=== PATIENT | female | born 1980 | race Caucasian/White ===

== ENCOUNTER 2021-04-22 10:22 | Outpatient (REF) | payer BC, SELFPAY ==
[2021-04-22 10:27] LABS: MANUAL DIFF FLAG NO
[2021-04-22 10:39] LABS: Basophils Absolute Auto 0.1 X10*3/uL (0.0-0.2); Basophils Percent Auto 0.6 % (0-2); Eosinophils Absolute Auto 0.3 X10*3/uL (0.0-0.4); Eosinophils Percent Auto 3.3 % (0-4); Hematocrit 39.2 % (37-47); Hemoglobin 13.5 g/dl (12.0-16.0); Imm Gran Abs Auto 0.02 X10*3/uL (0.00-0.03); Imm Gran Pct Auto 0.3 % (0.0-0.4); Lymphocytes Absolute Auto 2.8 X10*3/uL (1.2-4.9); Lymphocytes Percent Auto 35.8 % (20-40); Mean Corpuscular HGB Conc 34.4 g/dl (31.0-35.0); Mean Corpuscular Hemoglobin 31.8 pg (27.0-33.0); Mean Corpuscular Volume 92.2 fL (80-98); Mean Platelet Volume 10.7 fL (9.4-12.3); Monocytes Absolute Auto 0.6 X10*3/uL (0.1-1.2); Monocytes Percent Auto 7.6 % (2-11); Neutrophils Absolute Auto 4.2 X10*3/uL (2.0-8.3); Neutrophils Percent Auto 52.4 % (45-73); Platelet Count 232 X10*3/uL (160-400); Red Blood Count 4.25 X10*6/uL (4.20-5.50); White Blood Count 7.9 X10*3/uL (4.8-10.8)
[2021-04-22 10:54] LABS: Appearance Urine CLEAR; Color Urine YELLOW; Glucose Urine UA NEG (NEG); Leukocyte Esterase Urine NEG (NEG); Nitrite Urine NEG (NEG); PH 5.5 (5.0-8.0); Specific Gravity - Urine >= 1.030 (1.005-1.025); Urine Blood NEG (NEG); Urine Ketones NEG (NEG); Urine Protein NEG (NEG-TRACE)
[2021-04-22 11:01] LABS: Alanine Aminotransferase 9 U/L (0-31); Albumin Level 4.5 g/dL (3.5-5.0); Alkaline Phosphatase 46 U/L (39-117); Anion Gap 14 (12-20); Aspartate Amino Transferase 18 U/L (5-31); Bilirubin Total 0.7 mg/dL (0.0-1.0); Blood Urea Nitrogen 16 mg/dL (9-16); Calcium 9.4 mg/dL (8.4-10.2); Carbon Dioxide 23 mmol/L (22-29); Chloride 107 mmol/L (96-108); Cholesterol 214 mg/dL; Estimated Glomerular Filt Rate > 60; Glucose Fasting 90 mg/dL (60-99); HDL Cholesterol 78 mg/dL; LDL Cholesterol Calculated 120 mg/dl; Potassium 4.1 mmol/L (3.3-5.1); Sodium 140 mmol/L (135-145); Total Protein 7.2 g/dL (6.5-8.0); Triglycerides 84 mg/dL
== END 2021-04-22 10:23 | disposition home or self-care (01) ==
LOC: HO.LNP 10:22
PROVIDERS: Visit Provider Internal Medicine
DX: Z00.00 Encounter for general adult medical examination without abnormal findings (principal)
CPT/HCPCS: 80053; 80061; 81003; 85025

== ENCOUNTER 2021-08-13 10:20 | Outpatient (REF) | payer BC, SELFPAY ==
--- NOTE | ~2021-08-13 | MM_ITS ---
EXAMINATION: MM SCREENING DIGITAL BREAST TOMOSYNTHESIS, BILATERAL CLINICAL INFORMATION: Screening. Asymptomatic. Age 40. No prior breast imaging. Family history breast cancer, paternal aunt. The lifetime risk of breast cancer based on the Tyrer-Cuzick Model is 11%. COMPARISON: None (current study represents initial baseline exam). TECHNIQUE: Digital breast tomosynthesis is performed in both the craniocaudal and mediolateral oblique views along with computer-aided detection (CAD). Synthesized 2D images are generated from the tomosynthesis. FINDINGS: There are scattered areas of fibroglandular density (ACR BI-RADS breast composition Category b). Breast tissue composition borders on heterogeneously dense. There are scattered benign parenchymal asymmetries. No significant mass or architectural abnormality. No abnormal calcifications. The axilla and skin contours are unremarkable. MM/MM tomosynthesis screening BI IMPRESSION: No mammographic evidence of malignancy. ASSESSMENT: BI-RADS 2: Benign RECOMMENDATION: Routine annual mammography screening. This patient's information was entered into a reminder system with a target due date for their next mammogram.
== END 2021-08-13 10:21 | disposition home or self-care (01) ==
LOC: HO.MAMMO 10:20
PROVIDERS: Visit Provider Internal Medicine
DX: Z12.31 Encounter for screening mammogram for malignant neoplasm of breast (principal)
CPT/HCPCS: 77063; 77067

== ENCOUNTER 2022-03-15 09:42 | Outpatient (REF) | payer BC, SELFPAY ==
--- NOTE | ~2022-03-15 | US_ITS ---
EXAMINATION: US SOFT TISSUE NECK CLINICAL INFORMATION: Enlarged lymph nodes. COMPARISON: None TECHNIQUE: Ultrasound of the neck soft tissues is performed with high-frequency murillo-scale imaging and color Doppler. FINDINGS: THYROID BED: Prior thyroidectomy. No residual thyroid tissue demonstrated in the thyroid bed. No cystic or solid nodules demonstrated in the thyroid bed. RIGHT NECK SOFT TISSUES: Scattered architecturally normal nodes are present. The nodes show normal fatty hilus, normal cortical thickness, and no cystic change or calcification. No abnormal color flow. The largest nodes are as follows: Level 2: 0.90 x 0.35 x 0.74 cm. Normal aries architecture. Level 2: 1.7 x 0.49 x 0.94 cm. Normal aries architecture. LEFT NECK SOFT TISSUES: Scattered architecturally normal nodes are present. The nodes show normal fatty hilus, normal cortical thickness, and no cystic change or calcification. No abnormal color flow. The largest nodes are as follows: Level 5B: 1.3 x 0.28 x 0.54 cm. Normal aries architecture. Level 2: 0.84 x 0.48 x 0.69 cm. Normal aries architecture. Level 2: 1.1 x 1.5 x 0.61 cm. Normal aries architecture. Level 2: 1.0 x 0.48 x 0.96 cm. Normal aries architecture. US/US soft tiss head and/or neck IMPRESSION: 1. Bilateral neck small lymph nodes having normal architecture. The largest nodule measuring 1.3 cm in the left neck and has normal architecture. 2. If clinically indicated further evaluation of the neck soft tissues and nodes may be performed with CT soft tissue neck with intravenous contrast.
== END 2022-03-15 09:43 | disposition home or self-care (01) ==
LOC: HO.HMGCX 09:42
PROVIDERS: Visit Provider Internal Medicine
DX: R59.0 Localized enlarged lymph nodes (principal)
CPT/HCPCS: 76536

== ENCOUNTER 2022-04-28 12:06 | Outpatient (REF) | payer BC, SELFPAY ==
[2022-04-28 12:08] LABS: MANUAL DIFF FLAG NO
[2022-04-28 12:24] LABS: Basophils Percent Auto 0.5 % (0-2); Eosinophils Absolute Auto 0.3 X10*3/uL (0.0-0.4); Eosinophils Percent Auto 3.3 % (0-4); Hematocrit 38.1 % (37.0-47.0); Hemoglobin 12.8 g/dl (12.0-16.0); Imm Gran Abs Auto 0.01 X10*3/uL (0.00-0.03); Imm Gran Pct Auto 0.1 % (0.0-0.4); Lymphocytes Absolute Auto 2.6 X10*3/uL (1.2-4.9); Lymphocytes Percent Auto 31.2 % (20-40); Mean Corpuscular HGB Conc 33.6 g/dl (31.0-35.0); Mean Corpuscular Volume 92.3 fL (80.0-98.0); Mean Platelet Volume 10.4 fL (9.4-12.3); Monocytes Absolute Auto 0.6 X10*3/uL (0.1-1.2); Monocytes Percent Auto 7.1 % (2-11); Neutrophils Absolute Auto 4.9 x10*3/uL (2.0-8.3); Neutrophils Percent Auto 57.8 % (45-73); Platelet Count 231 X10*3/uL (160-400); Red Blood Count 4.13 X10*6/uL (4.20-5.50); Red Cell Distribution Width 12.6 % (11.0-16.0); White Blood Count 8.4 X10*3/uL (4.8-10.8)
[2022-04-28 12:37] LABS: Appearance Urine Clear; Color Urine Dark Yellow; Glucose Urine UA Negative (Negative); Leukocyte Esterase Urine Small (1+) (Negative); Nitrite Urine Negative (Negative); Specific Gravity - Urine 1.025 (1.005-1.025); UMIC TRIGGER UA YES; Urine Blood Negative (Negative); Urine Ketones Trace mg/dL (Negative); Urine Protein Negative (Neg-Trace)
[2022-04-28 12:39] LABS: Bacteria Urine 1+ (None Seen); Hyaline Casts Urine 0-2 /LPF (0-2); RBC Urine 0-2 /HPF (0-2)
[2022-04-28 12:50] LABS: Alanine Aminotransferase 12 U/L (0-31); Albumin Level 4.2 g/dL (3.5-5.0); Alkaline Phosphatase 42 U/L (39-117); Anion Gap 13 (12-20); Aspartate Amino Transferase 18 U/L (5-31); Bilirubin Total 0.3 mg/dL (0.0-1.0); Blood Urea Nitrogen 13 mg/dL (9-16); Calcium 9.2 mg/dL (8.4-10.2); Carbon Dioxide 25 mmol/L (22-29); Chloride 104 mmol/L (96-108); Cholesterol 202 mg/dL; Estimated Glomerular Filt Rate > 60; Glucose Fasting 89 mg/dL (60-99); HDL Cholesterol 69 mg/dL; LDL Cholesterol Calculated 108 mg/dl; Potassium 4.3 mmol/L (3.3-5.1); Sodium 138 mmol/L (135-145); Total Protein 6.8 g/dL (6.5-8.0); Triglycerides 126 mg/dL
== END 2022-04-28 12:07 | disposition home or self-care (01) ==
LOC: HO.LNP 12:06
PROVIDERS: Visit Provider Internal Medicine
DX: Z00.00 Encounter for general adult medical examination without abnormal findings (principal)
CPT/HCPCS: 80053; 80061; 81001; 85025

== ENCOUNTER 2022-08-15 10:13 | Outpatient (REF) | payer OTHER, SELFPAY ==
--- NOTE | ~2022-08-15 | MM_ITS ---
EXAMINATION: MM SCREENING DIGITAL BREAST TOMOSYNTHESIS, BILATERAL CLINICAL INFORMATION: Screening. Asymptomatic. The lifetime risk of breast cancer based on the Tyrer-Cuzick Model is 17%. COMPARISON: Mammography: 08/13/2021 (baseline) TECHNIQUE: Digital breast tomosynthesis is performed in both the craniocaudal and mediolateral oblique views along with computer-aided detection (CAD). Synthesized 2D images are generated from the tomosynthesis. FINDINGS: The breasts are heterogeneously dense, which may obscure small masses (ACR BI-RADS breast composition Category c). There are no significant masses, abnormal calcifications, or other abnormalities. Parenchymal pattern is similar to prior baseline exam. There is no developing density or architectural abnormality. The axilla and skin contours are unremarkable. No significant changes. MM/MM tomosynthesis screening BI IMPRESSION: No mammographic evidence of malignancy. ASSESSMENT: BI-RADS 1: Negative RECOMMENDATION: Routine annual mammography screening. This patient's information was entered into a reminder system with a target due date for their next mammogram.
== END 2022-08-15 10:14 | disposition home or self-care (01) ==
LOC: HO.MAMMO 10:13
PROVIDERS: PCP Internal Medicine; Visit Provider Internal Medicine
DX: Z12.31 Encounter for screening mammogram for malignant neoplasm of breast (principal)
CPT/HCPCS: 77063; 77067

== ENCOUNTER 2023-05-18 11:27 | Outpatient (REF) | payer OTHER, SELFPAY ==
[2023-05-18 11:29] LABS: MANUAL DIFF FLAG NO
[2023-05-18 12:10] LABS: Basophils Absolute Auto 0.1 X10*3/uL (0.0-0.2); Basophils Percent Auto 0.9 % (0-2); Eosinophils Absolute Auto 0.2 X10*3/uL (0.0-0.4); Eosinophils Percent Auto 3.3 % (0-4); Hematocrit 40.7 % (37.0-47.0); Hemoglobin 13.8 g/dl (12.0-16.0); Imm Gran Abs Auto 0.01 X10*3/uL (0.00-0.03); Imm Gran Pct Auto 0.1 % (0.0-0.4); Lymphocytes Absolute Auto 1.8 X10*3/uL (1.2-4.9); Lymphocytes Percent Auto 26.4 % (20-40); Mean Corpuscular HGB Conc 33.9 g/dl (31.0-35.0); Mean Corpuscular Hemoglobin 31.7 pg (27.0-33.0); Mean Corpuscular Volume 93.3 fL (80.0-98.0); Mean Platelet Volume 10.6 fL (9.4-12.3); Monocytes Absolute Auto 0.6 X10*3/uL (0.1-1.2); Monocytes Percent Auto 9.2 % (2-11); Neutrophils Absolute Auto 4.2 x10*3/uL (2.0-8.3); Neutrophils Percent Auto 60.1 % (45-73); Platelet Count 212 X10*3/uL (160-400); Red Blood Count 4.36 X10*6/uL (4.20-5.50); Red Cell Distribution Width 12.1 % (11.0-16.0); White Blood Count 6.9 X10*3/uL (4.8-10.8)
[2023-05-18 12:11] LABS: Appearance Urine Clear; Color Urine Yellow; Glucose Urine UA Negative (Negative); Leukocyte Esterase Urine Trace (Negative); Nitrite Urine Negative (Negative); UMIC TRIGGER UACC YES; Urine Blood Negative (Negative); Urine Ketones Negative (Negative); Urine Protein Negative (Neg-Trace)
[2023-05-18 12:19] LABS: Bacteria Urine None Seen (None Seen); Hyaline Casts Urine 0-2 /LPF (0-2); RBC Urine 0-2 /HPF (0-2); WBC Urine 0-5 /HPF (0-5)
[2023-05-18 12:35] LABS: Alanine Aminotransferase 13 U/L (0-31); Albumin Level 4.7 g/dL (3.5-5.0); Alkaline Phosphatase 47 U/L (39-117); Anion Gap 13 (12-20); Aspartate Amino Transferase 20 U/L (5-31); Bilirubin Total 0.7 mg/dL (0.0-1.0); Blood Urea Nitrogen 14 mg/dL (9-16); Calcium 9.8 mg/dL (8.4-10.2); Carbon Dioxide 23 mmol/L (22-29); Chloride 105 mmol/L (96-108); Cholesterol 195 mg/dL (<200); Estimated Glomerular Filt Rate > 60; Glucose Fasting 82 mg/dL (60-99); HDL Cholesterol 72 mg/dL (>40); LDL Cholesterol Calculated 112 mg/dL (<100); Potassium 4.4 mmol/L (3.3-5.1); Sodium 137 mmol/L (135-145); Total Protein 7.5 g/dL (6.5-8.0); Triglycerides 59 mg/dL (<150)
== END 2023-05-18 11:28 | disposition home or self-care (01) ==
LOC: HO.LNP 11:27
PROVIDERS: Visit Provider Internal Medicine
DX: Z00.00 Encounter for general adult medical examination without abnormal findings (principal)
CPT/HCPCS: 80053; 80061; 81001; 85025

== ENCOUNTER 2023-08-21 09:57 | Outpatient (REF) | payer OTHER, SELFPAY ==
--- NOTE | ~2023-08-21 | MM_ITS ---
EXAMINATION: MM SCREENING DIGITAL BREAST TOMOSYNTHESIS, BILATERAL CLINICAL INFORMATION: Screening. Asymptomatic. COMPARISON: Mammography: This study is compared with prior exams dating back to 2021. TECHNIQUE: Digital breast tomosynthesis is performed in both the craniocaudal and mediolateral oblique views along with computer-aided detection (CAD). Synthesized 2D images are generated from the tomosynthesis. FINDINGS: The breasts are heterogeneously dense, which may obscure small masses (ACR BI-RADS breast composition Category c). There are no significant masses, abnormal calcifications, or other abnormalities. MM/MM tomosynthesis screening BI IMPRESSION: No mammographic evidence of malignancy. ASSESSMENT: BI-RADS BI-RADS 1 - Negative RECOMMENDATION: Routine annual mammography screening. 1 year F/U This examination should not preclude the clinical evaluation of a suspicious palpable abnormality. This patient's information was entered into a reminder system with a target due date for their next mammogram.
== END 2023-08-21 09:58 | disposition home or self-care (01) ==
LOC: HO.MAMMO 09:57
PROVIDERS: PCP Internal Medicine; Visit Provider Internal Medicine
DX: Z12.31 Encounter for screening mammogram for malignant neoplasm of breast (principal)
CPT/HCPCS: 77063; 77067

== ENCOUNTER → 2023-08-21 10:00 | Outpatient (BNV) | payer OTHER, SELFPAY | PROVIDERS: PCP Internal Medicine; Visit Provider Radiology Diagnostic Radiology | DX: Z12.31 Encounter for screening mammogram for malignant neoplasm of breast (principal) | CPT/HCPCS: 77063; 77067 ==

== ENCOUNTER 2024-05-22 11:23 | Outpatient (REF) | payer OTHER, SELFPAY ==
[2024-05-22 11:26] LABS: MANUAL DIFF FLAG NO
[2024-05-22 11:53] LABS: Basophils Absolute Auto 0.1 X10*3/uL (0.0-0.2); Basophils Percent Auto 0.7 % (0-2); Eosinophils Absolute Auto 0.3 X10*3/uL (0.0-0.4); Eosinophils Percent Auto 3.7 % (0-4); Hematocrit 39.3 % (37.0-47.0); Hemoglobin 13.6 g/dl (12.0-16.0); Imm Gran Abs Auto 0.02 X10*3/uL (0.00-0.03); Imm Gran Pct Auto 0.3 % (0.0-0.4); Lymphocytes Absolute Auto 2.4 X10*3/uL (1.2-4.9); Mean Corpuscular HGB Conc 34.6 g/dl (31.0-35.0); Mean Corpuscular Hemoglobin 31.7 pg (27.0-33.0); Mean Corpuscular Volume 91.6 fL (80.0-98.0); Mean Platelet Volume 10.6 fL (9.4-12.3); Monocytes Absolute Auto 0.6 X10*3/uL (0.1-1.2); Monocytes Percent Auto 8.3 % (2-11); Neutrophils Absolute Auto 3.6 x10*3/uL (2.0-8.3); Platelet Count 205 X10*3/uL (160-400); Red Blood Count 4.29 X10*6/uL (4.20-5.50)
[2024-05-22 11:55] LABS: Appearance Urine Clear; Color Urine Dark Yellow; Glucose Urine UA Negative (Negative); Leukocyte Esterase Urine Negative (Negative); Nitrite Urine Negative (Negative); PH 5.5 (5.0-9.0); Specific Gravity - Urine >= 1.030 (1.005-1.025); Urine Blood Negative (Negative); Urine Ketones 15 mg/dL (Negative); Urine Protein Trace mg/dL (Neg-Trace)
[2024-05-22 12:04] LABS: Alanine Aminotransferase 13 U/L (0-31); Albumin Level 4.8 g/dL (3.5-5.0); Alkaline Phosphatase 45 U/L (39-117); Anion Gap 13 (12-20); Aspartate Amino Transferase 27 U/L (5-31); Bilirubin Total 1.4 mg/dL (0.0-1.0); Blood Urea Nitrogen 16 mg/dL (9-16); Calcium 9.8 mg/dL (8.4-10.2); Carbon Dioxide 25 mmol/L (22-29); Chloride 106 mmol/L (96-108); Cholesterol 199 mg/dL (<200); Estimated Glomerular Filt Rate > 60; Glucose Fasting 80 mg/dL (60-99); HDL Cholesterol 76 mg/dL (>40); LDL Cholesterol Calculated 112 mg/dL (<100); Potassium 3.7 mmol/L (3.3-5.1); Sodium 140 mmol/L (135-145); Total Protein 7.5 g/dL (6.5-8.0); Triglycerides 59 mg/dL (<150)
[2024-05-22 12:06] LABS: Bacteria Urine None Seen (None Seen); RBC Urine 0-2 /HPF (0-2); Squamous Epithelial Cell Urine 0-2 /HPF (0-2); WBC Urine 0-5 /HPF (0-5)
== END 2024-05-22 11:24 | disposition home or self-care (01) ==
LOC: HO.LNP 11:23
PROVIDERS: Visit Provider Internal Medicine
DX: Z00.00 Encounter for general adult medical examination without abnormal findings (principal)
CPT/HCPCS: 80053; 80061; 81001; 85025

== ENCOUNTER 2024-05-29 11:35 | Outpatient (REF) | payer OTHER, SELFPAY ==
[2024-05-29 12:35] LABS: TSH reflex Free T4 1.36 uIU/mL (0.32-4.0)
== END 2024-05-29 11:36 | disposition home or self-care (01) ==
LOC: HO.LNP 11:35
PROVIDERS: Visit Provider Internal Medicine
DX: R63.4 Abnormal weight loss (principal)
CPT/HCPCS: 84443

== ENCOUNTER 2024-08-26 10:07 | Outpatient (REF) | payer OTHER, SELFPAY ==
--- OUTSIDE RECORDS SUMMARY | 2024-08-26 10:58 | XMS_ITS ---
Author Organization Asim Shirley MD Address [address] [place], [place] [phone] Care Team Providers Care Chemical Treatment Operator Name Role Phone Asim Shirley Primary Care Provider [phone] Allergies No Known Allergies Results Component Value Reference Range Notes TSH reflex Free T4 Reviewed date:05/29/2024 12:38:02 PM Interpretation: Performing Lab:[facility], [address] [place] [phone] Notes/Report: TSH reflex Free T4 1.36 0.32-4.0 [...] Date Provider Diagnosis Asim Shirley MD [address] [facility] [address] [place] [phone] 05/29/2024 Asim Shirley Chest pressure R07.8 9 [...] Follow Up: 1 Year, Reason: Provider Name:Asim maezcua, 05/25/2025 07:30:00 AM, [address], [address], [place], [phone], Provider Name:Asim canalesr, 06/01/2025 08:30:00 AM, [address] [facility], [address], [place], [phone], Progress Notes * Leatha MOHR SDOB: [birth year] (43 yo F)Acc No.[id number]:05/29/2024 Progress Notes Patient:?Leatha Mohr Provider:?Asim Shirley MD :1980???Age:43 Y???Sex:Female D ate:05/29/2024 Address:[address] [place] [address] Raheem [place] [facility] [place] [facility] Subjective: * Chief Complaints: * ???Annual * HPI: ???Depression Screening:?PHQ-9?Little interest or pleasure in doing things?Not at all,?Feeling down, depressed, or hopeless?Not at all,?Trouble falling or staying asleep, or sleeping too much?Not at all,?Feeling tired or having little energy?Not at all,?Poor appetite or overeating?Not at all,?Feeling bad about yourself or that you are a failure, or have let yourself or your family down?Not at all,?Trouble concentrating on things, such as reading the newspaper or watching television?Not at all,?Moving or speaking so slowly that other people could have noticed; or the opposite, being so fidgety or restless that you have been moving around a lot more than usual?Not at all,?Thoughts that you would be better off or of hurting yourself in some way?Not at all,?Total Score?0.?Interpretation and Intervention?Depression Screening Findings?Negative,?Follow-Up for Depression?: review of PHQ-9 found negative result, no follow-up needed.?Communication Needs:?Communication Needs?Does the patient have a hearing impairment?No,?Does the patient have a vision impairment??No,?Does the patient have a cognition impairment??No.?SDOH Questions:?SDOH Questions?In the past year have you been worried about losing housing??No,?In the past year have you or any family members you live with been unable to get any of the following when it was really needed? Check all that apply:?None.?Symptom(s):? maribel is a 43 yo female here [...] pounds. eating habits have not changed. * ROS:?General/Constitutional:?Patient denies?fatigue , headache.?Change in appetite?denies.?Chills?denies.?Fever?denies.?Ophthalmologic:?Blurred vision?denies.?Discharge?denies.?Pain?denies.?ENT:?Patient denies?decreased sense of smell , any loss of taste , sore throat.?Decreased hearing?denies.?Sore throat?denies.?Swollen glands?denies.?Endocrine:?Cold intolerance?denies.?Excessive thirst?denies.?Heat intolerance?denies.?Weight loss?denies.?Respiratory:?Cough?denies.?Shortness of breath at rest?denies.?Shortness of breath with exertion?denies.?Wheezing?denies.?Cardiovascular:?Chest pain at rest?denies.?Chest pain with exertion?denies.?Irregular heartbeat?denies.?Shortness of breath?denies.?Gastrointestinal:?Abdominal pain?denies.?Change in bowel habits?denies.?Diarrhea?denies.?Nausea?denies.?Rectal bleeding?denies.?Vomiting?denies .?Genitourinary:?Blood in urine?denies.?Difficulty urinating?denies.?Frequent urination?denies.?Urinary incontinence?Denies.?Musculoskeletal:?Patient denies?muscle aches.?Painful joints?denies.?Weakness?denies.?Peripheral Vascular:?Patient denies?red and blue toes.?Skin:?Dry skin?denies.?Itching?denies.?Denies?Mole(s),? changes in moles, new moles or any lesions of concern.?Denies?Photosensitivity.?Rash?denies.?Neurologic:?Dizziness?denies.?Fainting?denies.?Headache?denies.? * Medical History:? * Surgical History:? * Hospitalization/Major Diagno stic Procedure:? * Family History:?Father: douglas fong 72 yrs, diagnosed with Diabetes.?Mother: alive 71 yrs, diagnosed with COPD.?1 brother(s) , 1 sister(s) . 1 son(s) , 1 daughter(s) . .? Father Pace Maker/Defib, Denies mental health/substance abuse family history, Denies mental health/substance abuse family history, Denies mental health/substance abuse family history. * Social History:?Tobacco Use:?Tobacco Use/Smoking?Patient is a?nonsmoker,?Additional Findings: Tobacco Non-User?Current non-smoker, currently using no form of tobacco.?Drugs/Alcohol:?Alcohol Screen?Did you have a drink containing alcohol in the past year??Yes,?How often did you have a drink containing alcohol in the past year??Monthly or less (1 point),?How many drinks did you have on a typical day when you were drinking in the past year??1 or 2 drinks (0 point),?How often did you have 6 or more drinks on one occasion in the past year??Never (0 point),?Points?1,?Interpretation?Negative.?Miscellaneous:?Caffeine: yes, frequency:, 1-2 cups per day. Children: yes. Community involvements: yes. Exercise: yes, RUN 2.5 MILES 3 DAYS A WEEK. Home smoke detector use: yes. Housing: owning. Living with: significant other. Marital status: single. Occupation: weeks/months/years, works full-time. Pets: bunnies x2 cat x1. no Travel outside of the [place], none. * Medications:?TakingNorethind arline 0.35 MG Tablet 1 tablet Orally Once [...] reviewed and reconciled with the patient * Allergies:?N.K.D.A.yes[Aller gies Verified] Objective: * Vitals:?Ht: 63, Wt:109, BMI: 19.31, BP:108/60 weight is down 6 pounds since 02-19-24. * ???Past Orders: ???Lab:Lipid Panel (Order Da te - 05/22/2024) (Collection Date - 05/22/2024) ? Value Reference Range ?Triglycerides 59 <150 - mg/dL ?Cholesterol 199 <200 - m g/dL ?LDL Cholesterol Calculated 112 H <100 - mg/dL ?HDL Cholesterol 76 >40 - mg/dL ???Lab:UA ClnCatch+Micro w/r flx Cult (Order Date - 05/22/2024) (Collection Date - 05/22/2024) ? Value Reference Range ?Color Urine Dark Yellow - ?Appearance Urine Clear - ?PH 5.5 5.0-9.0 - ?Glucose Urine UA Negative Neg ative - mg/dL ?Urine Blood Negative Negative - ?Specific [place] - Urine >= 1.030 H 1.005-1.025 - ?Urine Protein Trace Neg-Tr dilma - mg/dL ?Urine Ketones 15 Negati ve - mg/dL ?Nitrite Urine Negative Negati ve - ?Leukocyte Esterase Urine Negative Negative - ?RBC Urine 0-2 0-2 - /HPF ?WBC Urine 0-5 0-5 - /HPF ?Squamous Epithelial Cell Urine 0-2 0-2 - /HPF ?Bacteria Urine None Seen None Seen - ?Hyaline Casts Urine 3-5 0-2 - /LPF ???Lab:Complete Blood Count Auto Diff (Order Date - 05/22/2024) (Collection Date - 05/22/2024) ? Value Reference Range ?White Blood Count 7.0 4. 8-10.8 - X10*3/uL ?Red Blood Count 4.29 4.20 -5.50 - X10*6/uL ?Hemoglobin 13.6 12.0-16.0 - g/dl ?Hematocrit 39.3 37.0-47.0 - % ?Mean Corpuscular Volume 91.6 80.0-98.0 - fL ?Mean Corpuscular Hemoglobin 31.7 27.0-33.0 - pg ?Mean Corpuscular HGB Conc 34.6 31.0-35.0 - g/dl ?Red Cell Distribution Width 12.0 11.0-16.0 - % ?Platelet Count 205 160-4 00 - X10*3/uL ?Mean Platelet Volume 10.6 9.4-12.3 - fL ?Neutrophils Percent Auto 52.0 45-73 - % ?Imm Gran Pct Auto 0.3 0. 0-0.4 - % ?Lymphocytes Percent Auto 35.0 20-40 - % ?Monocytes Percent Auto 8.3 2-11 - % ?Eosinophils Percent Auto 3.7 0-4 - % ?Basophils Percent Auto 0.7 0-2 - % ?NRBC Pct Auto 0.0 0.0-0. 2 - /100WBC ?Neutrophils Absolute Auto 3.6 2.0-8.3 - x10*3/uL ?Imm Gran Abs Auto 0.02 0. 00-0.03 - X10*3/uL ?Lymphocytes Absolute Auto 2.4 1.2-4.9 - X10*3/uL ?Monocytes Absolute Auto 0.6 0.1-1.2 - X10*3/uL ?Eosinophils Absolute Auto 0.3 0.0-0.4 - X10*3/uL ?Basophils Absolute Auto 0.1 0.0-0.2 - X10*3/uL ?NRBC Abs Auto 0.000 0.0-0. 012 - X10*3/uL ???Lab:Comprehensive [place]. P hossein Fast (Order Date - 05/22/2024) (Collection Date - 05/22/2024) ? Value Reference Range ?Sodium 140 135-145 - mmo l/L ?Bilirubin Total 1.4 H 0.0- 1.0 - mg/dL ?Aspartate Amino Transferase 27 5-31 - U/L ?Alanine Aminotransferase 13 0-31 - U/L ?Total Protein 7.5 6.5-8. 0 - g/dL ?Albumin Level 4.8 3.5-5. 0 - g/dL ?Alkaline Phosphatase 45 39-117 - U/L ?Potassium 3.7 3.3-5.1 - mmol/L ?Chloride 106 96-108 - mm ol/L ?Carbon Dioxide 25 22-29 - mmol/L ?Anion Gap 13 12-20 - ?Blood Urea Nitrogen 16 9-16 - mg/dL ?Creatinine 0.84 0.5-1.4 - mg/dL ?Estimated Glomerular Filt Rate > 60 - ?Glucose Fasting 80 60-9 9 - mg/dL ?Calcium 9.8 8.4-10.2 - m g/dL * Examination: ???General Examination: ?GENERAL APPEARANCE:?well developed, well nourished, in no acute distress.?HEAD:?normocephalic, atraumatic.?EYES:?pupils equal, round, reactive to light and accommodation, sclera non-icteric.?EARS:?normal.?ORAL CAVITY:?mucosa moist.?THROAT:?clear.?NECK/THYROID:?neck supple, full range of motion, no cervical lymphadenopathy, no bruits.?SKIN:?warm and dry, no suspicious lesions.?HEART:?regular rate and rhythm, S1, S2 normal, no murmurs.?LUNGS:?clear to auscultation bilaterally.?BREASTS:?not examined.?ABDOMEN:?soft, nontender, nondistended, bowel sounds present, normal, no organomegaly , no masses palpable.?RECTAL EXAM:?done by meal temperer.?FEMALE GENITOURINARY:?done by meal temperer.?EXTREMITIES:?no clubbing, cyanosis, or edema.?NEUROLOGIC:?nonfocal, motor strength normal upper and lower extremities, sensory exam intact.? Assessment: * Assessment: 1.?Annual physical exam - Z0 0.00 (Primary)?2.?Chest pressure - R07.89?3.?Weight loss - R63.4?4.?Encounter for immunization - Z23?5.?Depression screening - Z13.31? Plan: * Treatment: 2.?Chest pressure? Notes: never with exertion and only for less than a minute and does hard workout with no difficulty?? 3.?Weight loss?LAB: TSH reflex Free T4 Notes: appetite is same but is busy with work?? 4.?Encounter for immunizatio n? Notes: flu vaccine admnistered?? 5.?Depression screening? Notes: negative screen?? * Procedure Codes:?89950 VENIP UNCT, ROUTINE* * Preventive Medicine:? ??Immunizations:?Influenza?Have you had a flu shot since the most recent March 30??Yes.? * Follow Up:?1 Year * * Sign off status: Completed true * Provider:?Asim Shirley MD Date:?1 Generated for Jackeline gomez/Shaneka/eTivanasmitting on:?08/26/2024 10:58 AM EST History and Physical Notes * [...] BREASTS: not examined RECTAL EXAM: done by meal temperer FEMALE GENITOURINARY: done by meal temperer ORAL CAVITY: mucosa moist
--- OUTSIDE RECORDS SUMMARY | 2024-08-26 10:58 | XMS_ITS | Patient Health Record ---
Author Organization Asim Shirley MD Address [address] [place], [place] [phone] Care Team Providers Care Environmental Permitting Specialist Name Role Phone Asim Shirley Primary Care Provider Allergies No Known Allergies Results Component Value Reference Range Notes Complete Blood Count Auto Di ff Reviewed date:05/22/2024 12:42:47 PM Interpretation: Performing Lab:[facility], [address] [place] [phone] Notes/Report: White Blood Count 7.0 4.8-10.8 X10*3/uL [...] NRBC Abs Auto 0.000 0.0-0.012 X10*3/uL Comprehensive [place]. Panel Fa st Reviewed date:05/22/2024 12:46:09 PM Interpretation: Performing Lab:[address] [phone] Notes/Report: Sodium 140 135-145 mmol/L Potassium 3.7 3.3-5.1 mmol/L Chloride 106 96-108 mmol/L Carbon Dioxide 25 22-29 mmol/L Anion Gap 13 12-20 Blood Urea Nitrogen 16 9-16 mg/dL Creatinine 0.84 0.5-1.4 mg/dL Estimated Glomerular Filt Rate > 60 NOTE: For -Jamaican individuals, multiply the result by 1.210. Chronic [...] Panel Reviewed date:05/22/2024 12:28:28 PM Interpretation: Performing Lab:[address] [phone] Notes/Report: Triglycerides 59 <150 mg/dL Desirable Triglyceride: [...] t Reviewed date:05/22/2024 12:31:12 PM Interpretation: Performing Lab:[facility], [address] [place] [phone] Notes/Report: Urine, Clean Catch Color Urine Dark Yellow Appearance Urine Clear PH 5.5 5.0-9.0 Glucose Urine UA Negative Negative mg/dL Urine Blood Negative Negative Specific [place] - Urine >= 1.030 1.005-1.025 Urine Protein Trace Neg-Trace mg/dL Urine Ketones 15 Negative mg/dL Nitrite Urine Negative Negative Leukocyte Esterase Urine Negative Negative RBC Urine 0-2 0-2 /HPF WBC Urine 0-5 0-5 /HPF Squamous Epithelial Cell Urine 0-2 0-2 /HPF Bacteria Urine None Seen None Seen Hyaline Casts Urine 3-5 0-2 /LPF Hold Green Gel Reviewed date:05/29/2024 11:46:36 AM Interpretation: Performing Lab:[facility], [address] [place] [phone] Notes/Report: Hold Green Gel See Note Specimen held untested for 24 hours; Call to request Chemistry testing. TSH reflex Free T4 Reviewed date:05/29/2024 12:38:02 PM Interpretation: Performing Lab:[facility], [address] [place] [phone] Notes/Report: TSH reflex Free T4 1.36 0.32-4.0 uIU/mL Reason For Referral No Information Medications Medication SIG (Take, Route, Frequency, Duration) [...] a day for 30 days 07/15/2024 Active Albuterol Sulfate HFA 108 (90 Base) MCG/ACT 1 puff as needed Inhalation every 4 hrs for 30 days 05/01/2022 Active Immunizations Vaccine Route Administration Date Status Comme nts TDaP IM Intramuscular 02/28/2014 Administered WLAGRE ENS Fluarix Quadrivalent IM Intramuscular 04/09/2018 Administe red Fluarix Quadrivalent IM Intramuscular 04/14/2019 Administe red Tetanus Unknown 02/28/2014 Administered Fluarix Quadrivalent IM Intramuscular 04/29/2020 Administe red Fluarix Quadrivalent IM Intramuscular 04/22/2021 Administe red SARS-COV-2 Pfizer Unknown 10/27/2020 Administered SARS-COV-2 Pfizer Unknown 11/17/2020 Administered SARS-COV-2 Pfizer Unknown 05/20/2021 Administered Fluarix Quadrivalent IM Intramuscular 05/18/2023 Administe red Fluarix Quadrivalent Unknown 08/07/2017 Refused Tetanus Unknown 02/28/2014 Pending Social History Tobacco Use: Social History Observation [...] Never (0 point) Points 1 Interpretation Negative Problems Problem Type SNOMED Code ICD Code Onset Dates Problem Status W/U Status Risk Notes Problem [id number] Exercise-induced bronchoconstriction (J45.990) Active confirmed Problem 909192173 Adult ADHD (F90.9) Active confirmed Vital Signs Blood pressure diastolic 60 mm Hg 05/29/2024 chayo ght is down 6 pounds since 02-19-24 Height 63 in 05/29/2024 weight is down 6 pounds since 02-19-24 Blood pressure systolic 108 mm Hg 05/29/2024 weig ht is down 6 pounds since 02-19-24 Weight 109 lbs 05/29/2024 weight is down 6 pounds since 02-19-24 BMI 19.31 kg/m2 05/29/2024 weight is down 6 pounds since 02-19-24 Encounters Encounter Location Date Provider Diagnosis Asim Shirley MD [address] [place] [phone] 01/14/2024 Asim Shirley Adult ADHD F90.9 Asim Shirley MD [address] [place] [phone] 02/19/2024 Asim Shirley Adult ADHD F90.9 Asim Shirley MD [address] [place] [address] Drive [address] [place] [phone] 05/22/2024 Asim Shirley Blood tests for routine general physical examination Z00.00 Asim Shirley MD [address] [place] [address] [phone] 05/29/2024 Asim Shirley Chest pressure R07.8 9 ; Annual physical exam Z00.00 ; Weight loss R63.4 ; Encounter for immunization Z23 and Depression screening Z13.31 Asim Shirley MD [address] [place] [id number] 01/15/2024 Asim Shirley MD [address] [place] [address] [phone] 07/15/2024 Asim Shirley Adult ADHD F90.9 Assessments Encounter Date Diagnosis (ICD Code) Assessment Notes Treatment Notes Treatment Clinical Notes Section Notes 01/14/2024 Adult ADHD (ICD-10 - F90.9) patient verbalized understanding of medication and directions for use 02/19/2024 Adult ADHD (ICD-10 - F90.9) patient meets the insurance requirements for medications for add. so will try to renew 05/22/2024 Blood tests for routine general physical examination (ICD-10 - Z00.00) 05/29/2024 Chest pressure (ICD-10 - R07.89) never with exertion and only for less than a minute and does hard workout with no difficulty 05/29/2024 Annual physical exam (ICD-10 - Z00.00) labs reviewed and discussed with patient 07/15/2024 Adult ADHD (ICD-10 - F90.9) 05/29/2024 Weight loss (ICD-10 - R63.4) appetite is same but is busy with work 05/29/2024 Encounter for immunization (ICD-10 - Z23) flu vaccine admnistered 05/29/2024 Depression screening (ICD-10 - Z13.31) negative screen Plan Of Treatment Pending Test Test Name Order Date US soft tiss head and/or neck 02/14/2022 Next Appt Details Provider Name:Asim Lemus ier, 05/25/2025 07:30:00 AM, [address] [place] [address], [address], [phone], Provider Name:Asim Lemus ier, 06/01/2025 08:30:00 AM, [address] [place] [address], [place] [address], [place], [place], [phone], Insurance Providers Payer Name Payer Address Payer Phone Subscriber Number Group Number Insured Name Patient Relationship to Insured Coverage Start Date Coverage End Date [facility] [address] [place] [id number] Leatha Mohr Self - patient is the insured [facility] [address] [place], [place] [id number] Leatha Mohr Self - patient is the insured Medical (General) History Medical History History ICD Code Abnormal CBC
--- OUTSIDE RECORDS SUMMARY | 2024-08-26 10:58 | XMS_ITS ---
Author Organization Asim Shirley MD Address [address] [place] [phone] Care Team Providers Care Bright Cutter Name Role Phone Asim Shirley Primary Care Provider REASON FOR VISIT refill Medications Medication SIG (Take, Route, Frequency, Duration) Notes Start Date End Date Status Adderall 5 MG 1 tablet Orally Twic e a day for 30 days 07/15/2024 Active Encounters Encounter Location Date Provider Diagnosis Asim Shirley MD [address] [facility] [address] [place] [phone] 07/15/2024 Asim Shirley Adult ADHD F90.9 Assessments Encounter Date Diagnosis (ICD Code) Assessment Notes Treatment Notes Treatment Clinical Notes Section Notes 07/15/2024 Adult ADHD (ICD-10 - F90.9) Plan Of Treatment Medication Medication Name Sig Start Date Stop Date Notes Adderall 5 MG 1 tablet Orally Twice a day for 30 days 06/29 Next Appt Details Provider Name:Asim amezcua, 05/25/2025 07:30:00 AM, [address] [place] [address], [address], [phone], Provider Name:Asim amezcua, 06/01/2025 08:30:00 AM, [address] [place] [address], [address], [phone], Progress Notes * Leatha MOHR SDOB: [birth year] (43 yo F)Acc No.[id number]:07/15/2024 Patient:?Leatha Mohr :1980???Age:43 Y???Sex:Female Address:[address] [place] [address] , [place] [address] * Refills? Refill Adderall Tablet, 5 MG, Orally, 60, 1 tablet, Twice a day, 30 days, Refills=0 * true * Date:? Generated for Jackeline gomez/Shaneka/eTivanasmitting on:?08/26/2024 10:57 AM EST
--- OUTSIDE RECORDS SUMMARY | 2024-08-26 10:58 | XMS_ITS ---
Author Organization Asim Shirley MD Address [address] [place], [place] [phone] Care Team Providers Care Manager Operations Research Name Role Phone Asim Shirley Primary Care Provider Results Component Value Reference Range Notes Complete Blood Count Auto Di ff Reviewed date:05/22/2024 12:42:47 PM Interpretation: Performing Lab:[facility], [address] [place] [phone] Notes/Report: White Blood Count 7.0 4.8-10.8 X10*3/uL [...] NRBC Abs Auto 0.000 0.0-0.012 X10*3/uL Comprehensive [place]. Panel Fa st Reviewed date:05/22/2024 12:46:09 PM Interpretation: Performing Lab:[address] [phone] Notes/Report: Sodium 140 135-145 mmol/L Potassium 3.7 3.3-5.1 mmol/L Chloride 106 96-108 mmol/L Carbon Dioxide 25 22-29 mmol/L Anion Gap 13 12-20 Blood Urea Nitrogen 16 9-16 mg/dL Creatinine 0.84 0.5-1.4 mg/dL Estimated Glomerular Filt Rate > 60 NOTE: For -Gambian individuals, multiply the result by 1.210. Chronic [...] Panel Reviewed date:05/22/2024 12:28:28 PM Interpretation: Performing Lab:[address] [place] [phone] Notes/Report: Triglycerides 59 <150 mg/dL Desirable Triglyceride: [...] t Reviewed date:05/22/2024 12:31:12 PM Interpretation: Performing Lab:[facility], [address] [place] [phone] Notes/Report: Urine, Clean Catch Color Urine Dark Yellow Appearance Urine Clear PH 5.5 5.0-9.0 Glucose Urine UA Negative Negative mg/dL Urine Blood Negative Negative Specific [place] - Urine >= 1.030 1.005-1.025 Urine Protein [...] Date Provider Diagnosis Asim Shirley MD [address] [place], [place] [phone] 05/22/2024 Asim Shirley Blood tests for routine general physical examination Z00.00 Assessments Encounter Date Diagnosis (ICD Code) Assessment Notes Treatment Notes Treatment Clinical Notes Section Notes 05/22/2024 Blood tests for routine general physical examination (ICD-10 - Z00.00) Plan Of Treatment Next Appt Details Provider Name:Asim amezcua, 05/25/2025 07:30:00 AM, [address], [address], [place], [place], [phone], Provider Name:Asim Lemus ier, 06/01/2025 08:30:00 AM, [address], [address], [place], [place], [phone], Progress Notes * Leatha MOHR SDOB: [birth year] (43 yo F)Acc No.[id number]:05/22/2024 Progress Note Patient:?Leatha Mohr S Provider:?Asim Shirley MD :1980???Age:43 Y???Sex:Female D ate:05/22/2024 Address:[address] [place], [place] [phone] Subjective: * Chief Complaints: * ???Fasting labs * Medical History:? * Surgical History:? * Hospitalization/Major Diagno stic Procedure:? * Medications:? Objective: Assessment: * Assessment: 1.?Blood tests for routine g eneral physical examination - Z00.00 (Primary)? Plan: * Treatment: * Procedure Codes:?78015 VENIP UNCT, ROUTINE* * * Sign off status: Completed true * Provider:?Asim Shirley MD Date:?1 Generated for Jackeline gomez/Shaneka/eTransmitting on:?08/26/2024 10:57 AM EST
== END 2024-08-26 10:08 | disposition home or self-care (01) ==
LOC: HO.MAMMO 10:07
PROVIDERS: PCP Internal Medicine; Visit Provider Internal Medicine
DX: Z12.31 Encounter for screening mammogram for malignant neoplasm of breast (principal)
CPT/HCPCS: 77063; 77067

== ENCOUNTER → 2024-08-26 10:15 | Outpatient (BNV) | CPT/HCPCS: 77063; 77067 ==

== ENCOUNTER 2025-05-25 10:00 | Outpatient (REF) | payer OTHER, SELFPAY ==
--- OUTSIDE RECORDS SUMMARY | 2024-01-14 06:15 | XMS_ITS ---
Author Organization Asim Shirley MD Address [address] [place], [place] [id number] Care Team Providers Care Portable Track Crew Chief Name Role Phone Asim Shirley Primary Care Provider Allergies No Known Allergies REASON FOR VISIT ? ADHD Medications Medication SIG (Take, Route, Frequency, Duration) Notes Start Date End Date Status ProAir HFA 108 (90 Base) MCG/ACT 2 puffs as needed Inhalation every 6 hrs for 30 days Not-Taking Albuterol Sulfate HFA 108 (90 Base) MCG/ACT 1 puff as needed Inhalation every 4 hrs for 30 days 05/01/2022 Active Qvar 80 MCG/ACT 2 puff Inhalation Twice a day 10/12/2017 Not-Taking Norethindrone 0.35 MG 1 tablet Orally On ce a day for 28 day(s) Active Adderall 5 MG 1 tablet Orally Twic e a day for 30 days 01/14/2024 Active Problems Problem Type SNOMED Code ICD Code Onset Dates Problem Status W/U Status Risk Notes Problem 325284703 Adult ADHD (F90.9) Active confirmed Vital Signs Blood pressure systolic 102 mm Hg 01/14/20 24 Blood pressure diastolic 60 mm Hg 024 Height 63 in 01/14/2024 Weight 115 lbs 01/14/2024 BMI 20.37 kg/m2 01/14/2024 weight is down 4 pounds [facility] e 10-27-23 Encounters Encounter Location Date Provider Diagnosis Asim Shirley MD [address] [place], [place] [phone] 01/14/2024 Asim Shirley Adult ADHD F90.9 Assessments Encounter Date Diagnosis (ICD Code) Assessment Notes Treatment Notes Treatment Clinical Notes Section Notes 01/14/2024 Adult ADHD (ICD-10 - F90.9) patient verbalized understanding of medication and directions for use Plan Of Treatment Medication Medication Name Sig Start Date Stop Date Notes Adderall 5 MG 1 tablet Orally Twice a day for 30 days 12/28 Treatment Notes Assessment Notes Adult ADHD patient verbalized u nderstanding of medication and directions for use Next Appt Details Follow Up: 4 Weeks, Reason: Provider Name:Asim Lemus ier, 06/01/2025 08:30:00 AM, [address], [address], [place], [place], [phone], Progress Notes * Leatha MOHR SDOB: [birth year] (43 yo F)Acc No.[id number]:01/14/2024 Progress Notes Patient: Leatha Ramirez Provider: Evelyn Shirley MD :1980 A ge:43 Y S ex:Female Date:01/14/2024 Address:[address] [place], [place] [phone] Subjective: * Chief Complaints: * ? ADHD * HPI: S ymptom(s): patient is a 43 yo female here to discuss ADHA. son has adhd. recently read a book about adhd and feels that it was her. feels like she misses details on her job that she should not.. has difficulty remembring to do things and gets distracted. works from home and can't stay focused. * ROS: G eneral/Constitutional: Denies C hills. D enies F atigue. D enies F ever. D enies H eadache. E NT: Patient denies d ecreased sense of smell , any loss of taste , sore throat. D enies S ore throat. R espiratory: Denies C ough. D enies S hortness of breath at rest. D enies S hortness of breath with exertion. G astrointestinal: Denies D iarrhea. D enies N ausea. M usculoskeletal: Patient denies m uscle aches. P eripheral Vascular: Patient denies r ed and blue toes. * Medical History: * Surgical History: * Hospitalization/Major Diagno stic Procedure: * Medications: T akingNorethindrone 0.35 MG Tablet 1 tablet Orally Once a dayAlbuterol Sulfate HFA 108 (90 Base) MCG/ACT Aerosol Solution 1 puff as needed Inhalation every 4 hrsTaking Norethindrone 0.35 MG Tablet 1 tablet Orally Once a dayTaking Albuterol Sulfate HFA 108 (90 Base) MCG/ACT Aerosol Solution 1 puff as needed Inhalation every 4 hrsNot-Taking/PRNProAir HFA 108 (90 Base) MCG/ACT Aerosol Solution 2 puffs as needed Inhalation every 6 hrsQvar 80 MCG/ACT Aerosol Solution 2 puff Inhalation Twice a dayNot-Taking/PRN ProAir HFA 108 (90 Base) MCG/ACT Aerosol Solution 2 puffs as needed Inhalation every 6 hrsNot-Taking/PRN Qvar 80 MCG/ACT Aerosol Solution 2 puff Inhalation Twice a dayDiscontinuedOrtho Tri-Cyclen Lo 0.18/0.215/0.25 MG-25 MCG Tablet 1 tablet Orally Once a dayMedication List reviewed and reconciled with the patientDiscontinued Ortho Tri-Cyclen Lo 0.18/0.215/0.25 MG-25 MCG Tablet 1 tablet Orally Once a dayMedication List reviewed and reconciled with the patient * Allergies: N .K.D.A.yes[Allergies Verified] Objective: * Vitals: H t: 63, Wt:115, BMI:20.37, BP:102/60 weight is down 4 pounds since 05-25-23. * Examination: G eneral Examination: GENERAL APPEARANCE: alert, well hydrated, in no distress . HEAD: normocephalic. SKIN: good turgor. HEART: no murmurs, rubs, gallops, regular rate and rhythm. LUNGS: no wheezes, rales, rhonchi, good air movement, clear to auscultation bilaterally. Assessment: * Assessment: 1. A dult ADHD - F90.9 (Primary) Plan: * Treatment: * Procedure Codes: * Follow Up: 4 Weeks * * Sign off status: Completed true * Provider: Evelyn Shirley MD Date: 0 01/14/2024 Generated for Lorii patricia/Shaneka/eTransmitting on: 1 11:51 AM EDT History and Physical Notes * HPI (History of Present Illness) Category Sub-Category Detail Notes Category Not es Symptom(s) patient is a 43 yo female here to discuss ADHA. son has adhd. recently read a book about adhd and feels that it was her. feels like she misses details on her job that she should not.. has difficulty remembring to do things and gets distracted. works from home and can't stay focused. Examination Category Sub-Category Detail Notes Category Not es General Examination GENERAL APPEARANCE: alert, w ell hydrated, in no distress HEAD: normocephalic HEART: no murmurs, rubs, ga llops, regular rate and rhythm LUNGS: no wheezes, rales, r honchi, good air movement, clear to auscultation bilaterally SKIN: good turgor
--- OUTSIDE RECORDS SUMMARY | 2024-01-15 10:16 | XMS_ITS ---
Author Organization Asim Shirley MD Address [address] [place] [phone] Care Team Providers Care White Sugar Pan Tank Operator Name Role Phone Asim Shirley Primary Care Provider REASON FOR VISIT Adderall 5mg needs P-A Encounters Encounter Location Date Provider Diagnosis Asim Shirley MD [address] [facility] [address] [place] [phone] 01/15/2024 Asim Shirley Plan Of Treatment Next Appt Details Provider Name:Asim Lemus ier, 06/01/2025 08:30:00 AM, [address] [facility], Suite [facility], [place], [place], [phone], Progress Notes * Leatha MOHR SDOB: [birth year] (43 yo F)Acc No.[id number]:01/15/2024 Patient: Leatha Ramirez :1980 A ge:43 Y S ex:Female Address:[address] [place] [address] [place] [address] * true * Date: Generated for Printi ng/Faxing/eTransmitting on: 11:50 AM EDT
--- OUTSIDE RECORDS SUMMARY | 2024-02-19 09:45 | XMS_ITS ---
Author Organization Asim Shirley MD Address [address] [place] [phone] Care Team Providers Care Power Reactor Supervisor Name Role Phone Asim Shirley Primary Care Provider [phone] Allergies No Known Allergies REASON FOR VISIT [...] Encounters Encounter Location Date Provider Diagnosis Asim Shirlye MD [address] [place], [place] [phone] 02/19/2024 Asimsamara Shirley Adult ADHD F90.9 Assessments [...] Follow Up: 4 Weeks, Reason: Provider Name:Asim Lujan Allan ier, 06/01/2025 08:30:00 AM, [address] [place] [address], [address], [place], [place], [phone], Progress Notes * Leatha MOHR SDOB: [birth year] (43 yo F)Acc No.[id number]:02/19/2024 Progress Notes Patient: Leatha Ramirez Provider: Evelyn Shirley MD :1980 A ge:43 Y S ex:Female Date:02/19/2024 Address:[address] [place], [place] [phone] Subjective: * Chief Complaints: * 4 WEEK [...] MD Date: 0 02/19/2024 Generated for Jackeline gomez/Shaneka/Jadielsmitting on: 1 11:50 AM EDT History and Physical Notes * [...]
--- OUTSIDE RECORDS SUMMARY | 2024-05-22 04:00 | XMS_ITS ---
Author Organization Asim Shirley MD Address [address] [place], [place] [phone] Care Team Providers Care Tailings Worker Name Role Phone Asim Shirley Primary Care Provider Results Component Value Reference Range Notes Complete Blood Count Auto Di ff Reviewed date:05/22/2024 12:42:47 PM Interpretation: Performing Lab:[facility], [address] [place] [phone] Notes/Report: White Blood Count 7.0 4.8-10.8 X10*3/uL [...] NRBC Abs Auto 0.000 0.0-0.012 X10*3/uL Comprehensive [place]. Panel Fa st Reviewed date:05/22/2024 12:46:09 PM Interpretation: Performing Lab:[address] [phone] Notes/Report: Sodium 140 135-145 mmol/L Potassium 3.7 3.3-5.1 mmol/L Chloride 106 96-108 mmol/L Carbon Dioxide 25 22-29 mmol/L Anion Gap 13 12-20 Blood Urea Nitrogen 16 9-16 mg/dL Creatinine 0.84 0.5-1.4 mg/dL Estimated Glomerular Filt Rate > 60 NOTE: For -Italian individuals, multiply the result by 1.210. Chronic [...] Panel Reviewed date:05/22/2024 12:28:28 PM Interpretation: Performing Lab:[address] [place] [phone] Notes/Report: Triglycerides 59 <150 mg/dL Desirable Triglyceride: [...] t Reviewed date:05/22/2024 12:31:12 PM Interpretation: Performing Lab:[facility], [address] [place] [phone] Notes/Report: Urine, Clean Catch Color Urine Dark Yellow Appearance Urine Clear PH 5.5 5.0-9.0 Glucose Urine UA Negative Negative mg/dL Urine Blood Negative Negative Specific [place] - Urine >= 1.030 1.005-1.025 Urine Protein [...] Date Provider Diagnosis Asim Shirley MD [address] [place], [place] [phone] 05/22/2024 Asim Shirley Blood tests for routine general physical examination Z00.00 Assessments Encounter Date Diagnosis (ICD Code) Assessment Notes Treatment Notes Treatment Clinical Notes Section Notes 05/22/2024 Blood tests for routine general physical examination (ICD-10 - Z00.00) Plan Of Treatment Next Appt Details Provider Name:Asim canalesr, 06/01/2025 08:30:00 AM, [address], [address], [place], [place], [phone], Progress Notes * Leatha MOHR SDOB: [birth year] (43 yo F)Acc No.[id number]:05/22/2024 Progress Note Patient: Leatha Ramirez Provider: Evelyn Shirley MD :1980 A ge:43 Y S ex:Female Date:05/22/2024 Address:[address] [place], [place] [id number] Subjective: * Chief Complaints: * F asting labs * Medical History: * Surgical History: * Hospitalization/Major Diagno stic Procedure: * Medications: Objective: Assessment: * Assessment: 1. B lood tests for routine general physical examination - Z00.00 (Primary) Plan: * Treatment: * Procedure Codes: 3 6415 VENIPUNCT, ROUTINE* * * Sign off status: Completed true * Provider: Evelyn Shirley MD Date: Generated for Jackeline gomez/Shaneka/Rafyitting on: 11:50 AM EDT
--- OUTSIDE RECORDS SUMMARY | 2024-05-29 04:30 | XMS_ITS ---
Author Organization Asim Shirley MD Address [address] [place], [place] [phone] Care Team Providers Care Decorating And Assembly Supervisor Name Role Phone Asim Shirley Primary Care Provider [phone] Allergies No Known Allergies Results Component Value Reference Range Notes TSH reflex Free T4 Reviewed date:05/29/2024 12:38:02 PM Interpretation: Performing Lab:[facility], [address] [place] [phone] Notes/Report: TSH reflex Free T4 1.36 0.32-4.0 [...] Date Provider Diagnosis Asim Shirley MD [address] [facility] [address] [place] [phone] 05/29/2024 Asim Shirley Chest pressure R07.8 9 [...] Up: 1 Year, Reason: Provider Name:Asim amezcua, 06/01/2025 08:30:00 AM, [address], [address], [place], [phone], Progress Notes * Leatha MOHR SDOB: [birth year] (43 yo F)Acc No.[id number]:05/29/2024 Progress Notes Patient: Leatha Ramirez Provider: Evelyn Shirley MD :1980 A ge:43 Y S ex:Female Date:05/29/2024 Address:[address] [place] [address] [address] [facility] [place], [id number] Subjective: * Chief Complaints: * A nnual [...] all that apply: N one. S ymptom(s): patint is a 43 yo female here for [...] T obacco Use: T obacco Use/Smoking P atrogers is a n onsmoker, A dditional Findings: [...] mg/dL Urine Blood Negative Negative - Specific [place] - Urine >= 1.030 H 1.005-1.025 - [...] Auto 0.000 0.0-0.012 - X10*3/uL L ab:Comprehensive [place]. Panel Fast (Order Date - 05/22/2024) (Collection [...] masses palpable. RECTAL EXAM: d one by finishing powder press operator. FEMALE GENITOURINARY: d one by finishing powder press operator. EXTREMITIES: n o clubbing, cyanosis, or edema. [...] VENIPUNCT, ROUTINE* * Preventive Medicine: Immunizations: I nflucarlos harris you had a flu shot since the most recent March 30? Y es. * Follow Up: 1 Year * * Sign off status: Completed true * Provider: Evelyn Shirley MD Date: Generated for Jackeline gomez/Shaneka/eTransmitting on: 11:51 AM EDT History and Physical Notes [...] Total Score: 0 Interpretation and Intervention Depression Yasmine meza Findings: Negative Follow-Up for Depression: : review [...] BREASTS: not examined RECTAL EXAM: done by finishing powder press operator FEMALE GENITOURINARY: done by finishing powder press operator ORAL CAVITY: mucosa moist
--- OUTSIDE RECORDS SUMMARY | 2024-07-15 05:56 | XMS_ITS ---
Author Organization Asim Shirley MD Address [address] [place] [phone] Care Team Providers Care Supervisor Volunteer Services Name Role Phone Asim Shirley Primary Care Provider [phone] REASON FOR VISIT refill Medications Medication SIG (Take, Route, Frequency, Duration) Notes Start Date End Date Status Adderall 5 MG 1 tablet Orally Twic e a day for 30 days 07/15/2024 Active Encounters Encounter Location Date Provider Diagnosis Asim Shirley MD [address] [facility] [address] [place] [phone] 07/15/2024 Asim Shirley Adult ADHD F90.9 Assessments Encounter Date Diagnosis (ICD Code) Assessment Notes Treatment Notes Treatment Clinical Notes Section Notes 07/15/2024 Adult ADHD (ICD-10 - F90.9) Plan Of Treatment Medication Medication Name Sig Start Date Stop Date Notes Adderall 5 MG 1 tablet Orally Twice a day for 30 days 06/29 Next Appt Details Provider Name:Asim amezcua, 06/01/2025 08:30:00 AM, [address], Suite [facility], [place], [place], [phone], Progress Notes * Leatha MOHR SDOB: [birth year] (43 yo F)Acc No.[id number]:07/15/2024 Patient: Leatha Ramirez :1980 A ge:43 Y S ex:Female Address:[address] [place] [address] , [place] [facility] [place] [address] * Refills Refill Adderall Tablet, 5 MG, Orally, 60, 1 tablet, Twice a day, 30 days, Refills=0 * true * Date: Generated for Jackeline gomez/Shaneka/Rafyitting on: 11:49 AM EDT
--- OUTSIDE RECORDS SUMMARY | 2024-12-12 05:53 | XMS_ITS ---
Author Organization Asim Shirley MD Address [address] [place] [phone] Care Team Providers Care Eviscerator Name Role Phone Asim Shirley Primary Care Provider REASON FOR VISIT REFILL ADDERALL (GENERIC) Medications Medication SIG (Take, Route, Frequency, Duration) Notes Start Date End Date Status Adderall 5 MG 1 tablet Orally Twic e a day for 30 days 12/12/2024 Active Encounters Encounter Location Date Provider Diagnosis Asim Shirley MD 10 [facility] [address] [place] [phone] 12/12/2024 Asim Shirley Adult ADHD F90.9 Assessments Encounter Date Diagnosis (ICD Code) Assessment Notes Treatment Notes Treatment Clinical Notes Section Notes 12/12/2024 Adult ADHD (ICD-10 - F90.9) Plan Of Treatment Medication Medication Name Sig Start Date Stop Date Notes Adderall 5 MG 1 tablet Orally Twice a day for 30 days 11/27 Next Appt Details Provider Name:Asim amezcua, 06/01/2025 08:30:00 AM, [address] [facility], Suite [facility], [place], [place], [phone], Progress Notes * Leatha MOHR SDOB: [birth year] (43 yo F)Acc No.[id number]:12/12/2024 Patient: Leatha EASLEY :1980 A ge:43 Y S ex:Female Address:[address] [place] [address] , [place] [address] * Refills Refill Adderall Tablet, 5 MG, Orally, 60, 1 tablet, Twice a day, 30 days, Refills=0 * true * Date: Generated for Jackeline gomez/Shaneka/Rafyitting on: 1 11:50 AM EDT
--- OUTSIDE RECORDS SUMMARY | 2024-12-15 07:16 | XMS_ITS ---
Author Organization Asim Shirley MD Address [address] [place] [phone] Care Team Providers Care Gold Blower Name Role Phone Asim Shirley Primary Care Provider REASON FOR VISIT P-A Adderall Encounters Encounter Location Date Provider Diagnosis Asim Shirley MD 10 [facility] [address] [place] [phone] 12/15/2024 Asim Shirley Plan Of Treatment Next Appt Details Provider Name:Asim Lemus ier, 06/01/2025 08:30:00 AM, [address] [place] [address], Suite [facility], [place], [place], [phone], Progress Notes * Leatha MOHR SDOB: [birth year] (44 yo F)Acc No.[id number]:12/15/2024 Patient: Leatha EASLEY :1980 A ge:43 Y S ex:Female Address:[address] [place] [address] * true * Date: Generated for Printi ng/Faxing/eTransmitting on: 11:51 AM EDT
--- OUTSIDE RECORDS SUMMARY | 2025-05-25 03:30 | XMS_ITS ---
Author Organization Asim Shirley MD Address [address] [place], [place] [phone] Care Team Providers Care Quality Improvement Engineer Name Role Phone Asim Shirley Primary Care Provider Results Component Value Reference Range Notes Complete Blood Count Auto Di ff (Not yet reviewed by provider) Interpretation: Performing Lab:[facility], [address] [place] [phone] Notes/Report: White Blood Count 7.0 4.8-10.8 X10*3/uL [...] Abs Auto 0.000 0.0-0.012 X10*3/uL Lipid Panel (Not yet reviewe d by provider) Interpretation: Performing Lab:[address] [phone] Notes/Report: Triglycerides 71 <150 mg/dL Desirable Triglyceride: [...] liver disease. UA ClnCatch+Micro w/rflx Cul t (Not yet reviewed by provider) Interpretation: Performing Lab:[address] [phone] Notes/Report: Urine, Clean Catch Color Urine Yellow Appearance Urine Clear PH 6.0 5.0-9.0 Glucose Urine UA Negative Negative mg/dL Urine Blood Negative Negative Specific [place] - Urine >= 1.030 1.005-1.025 Urine Protein [...] Location Date Provider Diagnosis Asim Shirley MD [address] [place] [address] [place] [phone] 05/25/2025 Asim Shirley Blood tests for routine general physical examination Z00.00 and Encounter for administration of vaccine Z23 Assessments Encounter Date Diagnosis (ICD Code) Assessment Notes Treatment Notes Treatment Clinical Notes Section Notes 05/25/2025 Blood tests for routine general physical examination (ICD-10 - Z00.00) 05/25/2025 Encounter for administration of vaccine (ICD-10 - Z23) Plan Of Treatment Pending Test Test Name Order Date Complete Blood Count Auto Diff 5 Comprehensive [place]. Panel Fast 5 Lipid Panel 05/25/2025 UA ClnCatch+Micro w/rflx Cult 05/25/2025 Next Appt Details Provider Name:Asim Lemus ier, 06/01/2025 08:30:00 AM, [address] [place] [address], Suite [facility], [place], [place], [phone], Progress Notes * Leatha MOHR SDOB: [birth year] (44 yo F)Acc No.[id number]:05/25/2025 Progress Note Patient: Leatha EASLEY Provider: Evelyn Shirley MD :1980 A ge:44 Y S ex:Female Date:05/25/2025 Address:[address] [place] [address] [id number] Subjective: * Chief Complaints: * 1 . [...] * Procedure Codes: 3 6415 VENIPUNCT, ROUTINE*, 25112 FLU VACCINE NO PRESERV 3 & >, [address] IMMUNIZATION ADMIN * * The named appointment provid er may or may not be the originator of this progress note, and it is not deemed complete until electronically signed by the appointment provider. Sign off status: Pending * Provider: Evelyn Shirley MD Date: Generated for Jackeline gomez/Shaneka/Xochitl on: 11:50 AM EDT
[2025-05-25 10:04] LABS: MANUAL DIFF FLAG NO
[2025-05-25 10:44] LABS: Hematocrit 36.8 % (37.0-47.0); Hemoglobin 12.2 g/dl (12.0-16.0); Imm Gran Abs Auto 0.01 X10*3/uL (0.00-0.03); Imm Gran Pct Auto 0.1 % (0.0-0.4); Lymphocytes Absolute Auto 2.6 X10*3/uL (1.2-4.9); Mean Corpuscular HGB Conc 33.2 g/dl (31.0-35.0); Mean Corpuscular Hemoglobin 31.0 pg (27.0-33.0); Mean Corpuscular Volume 93.4 fL (80.0-98.0); NRBC Abs Auto 0.000 X10*3/uL (0.0-0.012); NRBC Pct Auto 0.0 /100WBC (0.0-0.2); Platelet Count 227 X10*3/uL (160-400); Red Blood Count 3.94 X10*6/uL (4.20-5.50); White Blood Count 7.0 X10*3/uL (4.8-10.8)
[2025-05-25 10:48] LABS: Appearance Urine Clear; Glucose Urine UA Negative (Negative); PH 6.0 (5.0-9.0); Specific Gravity - Urine >= 1.030 (1.005-1.025)
[2025-05-25 11:18] LABS: Alanine Aminotransferase 14 U/L (0-31); Albumin Level 4.7 g/dL (3.5-5.0); Alkaline Phosphatase 36 U/L (39-117); Anion Gap 11 (12-20); Aspartate Amino Transferase 26 U/L (5-31); Blood Urea Nitrogen 16 mg/dL (9-16); Calcium 9.2 mg/dL (8.4-10.2); Carbon Dioxide 24 mmol/L (22-29); Chloride 109 mmol/L (96-108); Cholesterol 196 mg/dL (<200); Estimated Glomerular Filt Rate > 60; HDL Cholesterol 72 mg/dL (>40); Potassium 3.7 mmol/L (3.3-5.1); Sodium 140 mmol/L (135-145); Total Protein 6.9 g/dL (6.5-8.0); Triglycerides 71 mg/dL (<150)
--- OUTSIDE RECORDS SUMMARY | 2025-05-25 11:51 | XMS_ITS | Patient Health Record ---
Author Organization Asim Shirley MD Address [address] [place], [place] [phone] Care Team Providers Care Marketing/Sales Person Name Role Phone Asim Shirley Primary Care Provider Allergies No Known Allergies Results Component Value Reference Range Notes Hold Green Gel Reviewed date:05/29/2024 11:46:36 AM Interpretation: Performing Lab:[address] [phone] Notes/Report: Hold Green Gel See Note Specimen held untested for 24 hours; Call to request Chemistry testing. TSH reflex Free T4 Reviewed date:05/29/2024 12:38:02 PM Interpretation: Performing Lab:[address] [phone] Notes/Report: TSH reflex Free T4 1.36 0.32-4.0 uIU/mL MM tomosynthesis screening B I Reviewed date:09/05/2024 04:15:38 PM Interpretation: Performing Lab: Notes/Report: [facility] [address] [place] [address] Mammography Report Signed Patient: Leatha Mohr MR#: [id number] [birth year] : 1980 Acct:[id number] Age/Sex: 43 / F ADM Date: 08/26/24 Loc: HO.MAMMO Attending Dr: Asim Shirley MD Ordering Physician: Asim Shirley MD Results: 1Ne gative Date of Service: 08/26/24 Follow Up: 1 Year From Orig inal Mammogram Procedure(s): MM tomosynthesis screening BI Accession Number(s): [id number] cc: Asim Shirley MD EXAMINATION: MM SCREENING DIGITAL BREAST TOMOSYNTHESIS, BILATERAL CLINICAL INFORMATION: Screening. Asymptomatic. COMPARISON: Mammography: Comparison is made with available priors TECHNIQUE: Digital breast mammography with tomosynthesis is performed in both the craniocaudal and mediolateral oblique views along with computer-aided detection (CAD). FINDINGS: The breasts are heterogeneously dense, which may obscure small masses (ACR BI-RADS breast composition Category c). There are no significant masses, abnormal calcifications, or other abnormalities. MM/MM tomosynthesis screening BI IMPRESSION: No mammographic evidence of malignancy. ASSESSMENT: BI-RADS BI-RADS 1 - Negative RECOMMENDATION: Routine annual mammography screening. 1 year F/U This examination should not preclude the clinical evaluation of a suspicious palpable abnormality. This patient's information was entered into a reminder system with a target due date for their next mammogram. Electronically signed by: Peggy Simmons DO 09/05/2024 12:42 PM [facility] Dictated By: Peggy Simmons DO Signed By: <Electronically signed by Peggy Simmons DO in OV> 09/05/24 1242 DD/ 1015 TD/TT: 08/26/24 1040 Pulp Piler: [facility] [address] [place] [address] Mammography Report Signed Patient: Tee Mohr MR#: [id number] [birth year] : 1980 Acct:[id number] Age/Sex: 43 / F ADM Date: 08/26/24 Loc: BOBBI Attending Dr: Asim Shirley MD Ordering Physician: Asim Shirley MD Results: 1Ne gative Date of Service: 08/26/24 Follow Up: 1 Year From Orig inal Mammogram Procedure(s): MM tomosynthesis screening BI Accession Number(s): [id number] cc: Asim Shirley MD EXAMINATION: MM SCREENING DIGITAL BREAST TOMOSYNTHESIS, BILATERAL CLINICAL INFORMATION: Screening. Asymptomatic. COMPARISON: Mammography: Compari son is made with available priors TECHNIQUE: Digital breast mammography with tomosynthesis is performed in both the craniocaudal and mediolateral oblique views along with computer-aided detection (CAD). FINDINGS: The breasts are heterogeneously dense, which may obscure small masses (ACR BI-RADS breast composition Category c). There are no significant masses, abnormal calcifications, or other abnormalities. MM/MM tomosynthesis screening BI IMPRESSION: No mammographic evidence of malignancy. ASSESSMENT: BI-RADS BI-RADS 1 - Negative RECOMMENDATION: Routine annual mammography screening. 1 year F/U This examination sander uld not preclude the clinical evaluation of a suspicious palpable abnormality. This patient's information was entered into a reminder system with a target due date for their next mammogram. Electronically pablo d by: Peggy Simmons DO 09/05/2024 12:42 PM [facility] Dictated By: Peggy Simmons DO Signed By: <Electronically signed by Peggy Simmons DO in OV> 09/05/24 1242 DD/ 1015 TD/TT: 08/26/24 1040 Pulp Piler: Comprehensive Met. Panel (No t yet reviewed by provider) Interpretation: Performing Lab:[facility], [address] [place] [phone] Notes/Report: Sodium 140 135-145 mmol/L Potassium 3.7 3.3-5.1 mmol/L Chloride 109 96-108 mmol/L Carbon Dioxide 24 22-29 mmol/L Anion Gap 11 12-20 Blood Urea Nitrogen 16 9-16 mg/dL Creatinine 0.76 0.5-1.4 mg/dL Estimated Glomerular Filt Rate > 60 Chronic Kidney Disease: Estimated GFR < 60 mL/min/1.73m2 Severe Kidney Disease: Estimated GFR < 15 mL/min/1.73m2 Glucose Random 91 60-115 mg/dL Calcium 9.2 8.4-10.2 mg/dL Bilirubin Total 0.9 0.0-1.0 mg/dL Aspartate Amino Transferase 26 5-31 U/L Alanine Aminotransferase 14 0-31 U/L Total Protein 6.9 6.5-8.0 g/dL Albumin Level 4.7 3.5-5.0 g/dL Alkaline Phosphatase 36 39-117 U/L Complete Blood Count Auto Di ff (Not yet reviewed by provider) Interpretation: Performing Lab:[address] [phone] Notes/Report: White Blood Count 7.0 4.8-10.8 X10*3/uL [...] 0.00-0.03 X10*3/uL Lymphocytes Absolute Auto 2.6 1.2-4.9 X10*3/uL Monocytes Absolute Auto 0.6 0.1-1.2 X10*3/uL Eosinophils Absolute Auto 0.2 0.0-0.4 X10*3/u L Basophils Absolute Auto 0.1 0.0-0.2 X10*3/uL NRBC Abs Auto 0.000 0.0-0.012 X10*3/uL Lipid Panel (Not yet reviewe d by provider) Interpretation: Performing Lab:[facility], [address] [place] [phone] Notes/Report: Triglycerides 71 <150 mg/dL Desirable Triglyceride: [...] (Not yet reviewed by provider) Interpretation: Performing Lab:[facility], [address] [place] [phone] Notes/Report: Urine, Clean Catch Color Urine Yellow Appearance Urine Clear PH 6.0 5.0-9.0 Glucose Urine UA Negative Negative mg/dL Urine Blood Negative Negative Specific [place] - Urine >= 1.030 1.005-1.025 Urine Protein Negative Neg-Trace mg/dL Urine Ketones Negative Negative mg/dL Nitrite Urine Negative Negative Leukocyte Esterase Urine Negative Negative RBC Urine 0-2 0-2 /HPF WBC Urine 0-5 0-5 /HPF Squamous Epithelial Cell Urine 3-5 0-2 /HPF Bacteria Urine None Seen None Seen Hyaline Casts Urine 0-2 0-2 /LPF Reason For Referral No Information Medications Medication SIG (Take, Route, Frequency, Duration) Notes Start Date End Date Status ProAir HFA 108 (90 Base) MCG/ACT 2 puffs as needed Inhalation every 6 hrs for 30 days Not-Taking Qvar 80 MCG/ACT 2 puff Inhalation Twice a day 10/12/2017 Not-Taking Adderall 5 MG 1 tablet Orally Twic e a day for 30 days 12/12/2024 Active Norethindrone 0.35 MG 1 tablet Orally [...] IM Intramuscular 05/18/2023 Administe red Fluarix Quadrivalent - 150 IM Intramuscular 05/25/2025 Administered Fluarix Quadrivalent Unknown 08/07/2017 Refused Tetanus Unknown [...] Problem Status W/U Status Risk Notes Problem 286649901 Exercise-induced bronchoconstriction (J45.990) Active confirmed Problem 663949717 Adult ADHD (F90.9) Active confirmed Vital Signs Blood pressure diastolic 60 mm Hg 05/29/2024 chayo ght is down 6 pounds since 02-19-24 Height 63 in 05/29/2024 weight is down 6 pounds since 02-19-24 Blood pressure systolic 108 mm Hg 05/29/2024 weig ht is down 6 pounds since 7-23-24 Weight 109 lbs 05/29/2024 weight is down 6 pounds since 02-19-24 BMI 19.31 kg/m2 05/29/2024 weight is down 6 pounds since 02-19-24 Encounters Encounter Location Date Provider Diagnosis Asim Shirley MD [address] [phone] 05/25/2025 Asim Shirley Blood tests for routine general physical examination Z00.00 and Encounter for administration of vaccine Z23 Asim Shirley MD [address] [place] [address] [phone] 05/29/2024 Asim Shirley Chest pressure R07.8 9 ; Annual physical exam Z00.00 ; Weight loss R63.4 ; Encounter for immunization Z23 and Depression screening Z13.31 Asim Shirley MD [address] [place] [address] [phone] 07/15/2024 Asim Shirley Adult ADHD F90.9 Asim Shirley MD [address] [place] [phone] 12/12/2024 Asim Shirley Adult ADHD F90.9 Asim Shirley MD [address] [place] [address] [phone] 12/15/2024 Asim Shirley Assessments Encounter Date Diagnosis (ICD Code) Assessment Notes Treatment Notes Treatment Clinical Notes Section Notes 05/25/2025 Blood tests for routine general physical examination (ICD-10 - Z00.00) 05/25/2025 Encounter for administration of vaccine (ICD-10 - Z23) 05/29/2024 Chest pressure (ICD-10 - R07.89) never with exertion and only for less than a minute and does hard workout with no difficulty 05/29/2024 Annual physical exam (ICD-10 - Z00.00) labs reviewed and discussed with patient 07/15/2024 Adult ADHD (ICD-10 - F90.9) 12/12/2024 Adult ADHD (ICD-10 - F90.9) 05/29/2024 Weight loss (ICD-10 - R63.4) appetite is same but is busy with work 05/29/2024 Encounter for immunization (ICD-10 - Z23) flu vaccine admnistered 05/29/2024 Depression screening (ICD-10 - Z13.31) negative screen Plan Of Treatment Pending Test Test Name Order Date Complete Blood Count Auto Diff 5 Comprehensive Met. Panel 05/25/2025 Comprehensive [place]. Panel Fast 5 Lipid Panel 05/25/2025 US soft tiss head and/or neck 02/14/2022 UA ClnCatch+Micro w/rflx Cult 05/25/2025 Next Appt Details Provider Name:Asim Lemus ier, 06/01/2025 08:30:00 AM, [address] [place] [address], [address], [place], [place], [phone], Insurance Providers Payer Name Payer Address Payer Phone Subscriber Number Group Number Insured Name Patient Relationship to Insured Coverage Start Date Coverage End Date [facility] [address] [place] [id number] Leatha Mohr Self - patient is the insured [facility] [address] [place], [place] [id number] Leatha Mohr Self - patient is the insured Medical (General) History Medical History History ICD Code Abnormal CBC
== END 2025-05-25 10:01 | disposition home or self-care (01) ==
LOC: HO.LNP 10:00
PROVIDERS: Visit Provider Internal Medicine
DX: Z00.00 Encounter for general adult medical examination without abnormal findings (principal); Z13.0 Encounter for screening for diseases of the blood and blood-forming organs and certain disorders involving the immune mechanism; Z13.6 Encounter for screening for cardiovascular disorders
CPT/HCPCS: 80053; 80061; 81001; 85025

== ENCOUNTER 2025-07-21 08:11 | Outpatient (AMB) | payer OTHER, SELFPAY ==
--- OUTSIDE RECORDS SUMMARY | 2024-02-19 08:45 | XMS_ITS ---
Author Organization Asim Shirley MD Address [address] [place] [phone] Care Team Providers Care Child Care Attendant School Name Role Phone Asim Shirley Primary Care Provider [phone] Allergies No Known Allergies REASON FOR VISIT 4 WEEK F/U Medications Medication SIG (Take, Route, Frequency, Duration) Notes Start Date End Date Status ProAir HFA 108 (90 Base) MCG/ACT 2 puffs as needed Inhalation every 6 hrs for 30 days Not-Taking Qvar 80 MCG/ACT 2 puff Inhalation Twice a day 10/12/2017 Not-Taking Adderall 5 MG 1 tablet Orally Twic e a day for 30 days 02/19/2024 Active Norethindrone 0.35 MG 1 tablet Orally On ce a day for 28 day(s) Active Albuterol Sulfate HFA 108 (90 Base) MCG/ACT 1 puff as needed Inhalation every 4 hrs for 30 days 05/01/2022 Active Vital Signs Blood pressure systolic 102 mm Hg 02/19/20 24 Blood pressure diastolic 60 mm Hg 024 Height 63 in 02/19/2024 Weight 115 lbs 02/19/2024 BMI 20.37 kg/m2 02/19/2024 Encounters Encounter Location Date Provider Diagnosis Asim Shirley MD [address] [place], [place] [phone] 02/19/2024 Asimsamara Shirley Adult ADHD F90.9 Assessments Encounter Date Diagnosis (ICD Code) Assessment Notes Treatment Notes Treatment Clinical Notes Section Notes 02/19/2024 Adult ADHD (ICD-10 - F90.9) patient meets the insurance requirements for medications for add. so will try to renew Plan Of Treatment Medication Medication Name Sig Start Date Stop Date Notes Adderall 5 MG 1 tablet Orally Twice a day for 30 days 01/28 Treatment Notes Assessment Notes Adult ADHD patient meets the in surance requirements for medications for add. so will try to renew Next Appt Details Follow Up: 4 Weeks, Reason: Provider Name:Asim Lemus ier, 05/28/2026 07:15:00 AM, [address] [facility], [address], [place], [place], [phone], Provider Name:Asim Lemus seven, 06/04/2026 08:30:00 AM, [address] [facility], [address], [place], [place], [phone], Progress Notes * Leatha MOHR SDOB: [birth year] (43 yo F)Acc No.[id number]:02/19/2024 Progress Notes Patient: Leatha Ramirez Provider: Evelyn Shirley MD :1980 A ge:43 Y S ex:Female Date:02/19/2024 Address:[address] [place], [place] [phone] Subjective: * Chief Complaints: * 4 WEEK F/U * HPI: S ymptom(s): patient is a 43 yo female here for 4 week follow up of add. always did well in school. nothing had been flagged in past. has trouble with processing and may have been that way as a child but was not diagnosed. was not able to learn by a teacher because she couldn't listen and learn. couldn't learn in classes in college. * ROS: G eneral/Constitutional: Denies C hills. D enies F atigue. D enies F ever. D enies H eadache. E NT: Patient denies d ecreased sense of smell, any loss of taste, sore throat. D enies S ore throat. [...] 1 puff as needed Inhalation every 4 hrsNot-Taking/PRNAdderall 5 MG Tablet 1 tablet Orally Twice a dayProAir HFA 108 (90 Base) MCG/ACT Aerosol Solution 2 puffs as needed Inhalation every 6 hrsQvar 80 MCG/ACT Aerosol Solution 2 puff Inhalation Twice a dayMedication List reviewed and reconciled with the patientNot-Taking/PRN Adderall 5 MG Tablet 1 tablet Orally Twice a dayNot-Taking/PRN ProAir HFA 108 (90 Base) MCG/ACT Aerosol Solution 2 puffs as needed Inhalation every 6 hrsNot-Taking/PRN Qvar 80 MCG/ACT Aerosol Solution 2 puff Inhalation Twice a dayMedication List reviewed and reconciled with the patient * Allergies: N .K.D.A.yes[Allergies Verified] Objective: * Vitals: H t: 63, Wt:115, BMI:20.37, BP:102/60. * Examination: G eneral Examination: GENERAL APPEARANCE: [...] * Provider: Evelyn Shirley MD Date: 0 02/19/2024 Generated for Jackeline gomez/Shaneka/Xochitl on: 1 09/21/2024 08:14 AM EST History and Physical Notes * HPI (History of Present Illness) Category Sub-Category Detail Notes Category Not es Symptom(s) patient is a 43 yo female here for 4 week follow up of add. always did well in school. nothing had been flagged in past. has trouble with processing and may have been that way as a child but was not diagnosed. was not able to learn by a teacher because she couldn't listen and learn. couldn't learn in classes in college Examination Category Sub-Category Detail Notes Category Not es General Examination GENERAL APPEARANCE: alert, w ell hydrated, in no distress HEAD: normocephalic HEART: no murmurs, rubs, ga llops, regular rate and rhythm LUNGS: no wheezes, rales, r honchi, good air movement, clear to auscultation bilaterally SKIN: good turgor
--- OUTSIDE RECORDS SUMMARY | 2024-05-22 03:00 | XMS_ITS ---
Author Organization Asim Shirley MD Address [address] [place], [place] [phone] Care Team Providers Care Spinning Bath Patroller Name Role Phone Asim Shirley Primary Care Provider [phone] Results Component Value Reference Range Notes Complete Blood Count Auto Di ff Reviewed date:05/22/2024 12:42:47 PM Interpretation: Performing Lab:[facility], [address] [place] [id number] Notes/Report: White Blood Count 7.0 4.8-10.8 X10*3/uL Red Blood Count 4.29 4.20-5.50 X10*6/uL Hemoglobin 13.6 12.0-16.0 g/dl Hematocrit 39.3 37.0-47.0 % Mean Corpuscular Volume 91.6 80.0-98.0 fL Mean Corpuscular Hemoglobin 31.7 27.0-33.0 pg Mean Corpuscular HGB Conc 34.6 31.0-35.0 g/dl Red Cell Distribution Width 12.0 11.0-16.0 % Platelet Count 205 160-400 X10*3/uL Mean Platelet Volume 10.6 9.4-12.3 fL Neutrophils Percent Auto 52.0 45-73 % Imm Gran Pct Auto 0.3 0.0-0.4 % Lymphocytes Percent Auto 35.0 20-40 % Monocytes Percent Auto 8.3 2-11 % Eosinophils Percent Auto 3.7 0-4 % Basophils Percent Auto 0.7 0-2 % NRBC Pct Auto 0.0 0.0-0.2 /100WBC Neutrophils Absolute Auto 3.6 2.0-8.3 x10*3/u L Imm Gran Abs Auto 0.02 0.00-0.03 X10*3/uL Lymphocytes Absolute Auto 2.4 1.2-4.9 X10*3/u L Monocytes Absolute Auto 0.6 0.1-1.2 X10*3/uL Eosinophils Absolute Auto 0.3 0.0-0.4 X10*3/u L Basophils Absolute Auto 0.1 0.0-0.2 X10*3/uL NRBC Abs Auto 0.000 0.0-0.012 X10*3/uL Comprehensive [place]. Panel Fa st Reviewed date:05/22/2024 12:46:09 PM Interpretation: Performing Lab:[address] [phone] Notes/Report: Sodium 140 135-145 mmol/L Potassium 3.7 3.3-5.1 mmol/L Chloride 106 96-108 mmol/L Carbon Dioxide 25 22-29 mmol/L Anion Gap 13 12-20 Blood Urea Nitrogen 16 9-16 mg/dL Creatinine 0.84 0.5-1.4 mg/dL Estimated Glomerular Filt Rate > 60 NOTE: For -Stateless individuals, multiply the result by 1.210. Chronic Kidney Disease: Estimated GFR < 60 mL/min/1.73m2 Severe Kidney Disease: Estimated GFR < 15 mL/min/1.73m2 Glucose Fasting 80 60-99 mg/dL Calcium 9.8 8.4-10.2 mg/dL Bilirubin Total 1.4 0.0-1.0 mg/dL Aspartate Amino Transferase 27 5-31 U/L Alanine Aminotransferase 13 0-31 U/L Total Protein 7.5 6.5-8.0 g/dL Albumin Level 4.8 3.5-5.0 g/dL Alkaline Phosphatase 45 39-117 U/L Lipid Panel Reviewed date:05/22/2024 12:28:28 PM Interpretation: Performing Lab:[address] [place] [phone] Notes/Report: Triglycerides 59 <150 mg/dL Desirable Triglyceride: less than 150 mg/dL Borderline High Triglyceride 150-199 mg/dL High Triglyceride: 200-499 mg/dL Very High Triglyceride: greater than or equal to 5OO mg/dL Cholesterol 199 <200 mg/dL Desirable Cholesterol: less than 200 mg/dL Borderline High Cholesterol: 200-239 mg/dL High Cholesterol: greater than 239 mg/dL LDL Cholesterol Calculated 112 <100 mg/dL Desirable LDL: less than 100 mg/dL Near Optimal/Above Optimal LDL: 110-129 mg/dL Borderline High LDL: 130-159 mg/dL High LDL: 160-189 mg/dL Very High LDL: greater than or equal to 190 mg/dL HDL Cholesterol 76 >40 mg/dL Desirable HDL: greater than 40 mg/dL Note: This HDL assay may give artificially low results in patients with liver disease. UA ClnCatch+Micro w/rflx Cul t Reviewed date:05/22/2024 12:31:12 PM Interpretation: Performing Lab:[facility], [address] [place] [id number] Notes/Report: Urine, Clean Catch Color Urine Dark Yellow Appearance Urine Clear PH 5.5 5.0-9.0 Glucose Urine UA Negative Negative mg/dL Urine Blood Negative Negative Specific [place] - Urine >= 1.030 1.005-1.025 Urine Protein Trace Neg-Trace mg/dL Urine Ketones 15 Negative mg/dL Nitrite Urine Negative Negative Leukocyte Esterase Urine Negative Negative RBC Urine 0-2 0-2 /HPF WBC Urine 0-5 0-5 /HPF Squamous Epithelial Cell Urine 0-2 0-2 /HPF Bacteria Urine None Seen None Seen Hyaline Casts Urine 3-5 0-2 /LPF REASON FOR VISIT fasting labs Encounters Encounter Location Date Provider Diagnosis Asim Shirley MD [address] [place], [place] [phone] 05/22/2024 Asim Shirley Blood tests for routine general physical examination Z00.00 Assessments Encounter Date Diagnosis (ICD Code) Assessment Notes Treatment Notes Treatment Clinical Notes Section Notes 05/22/2024 Blood tests for routine general physical examination (ICD-10 - Z00.00) Plan Of Treatment Next Appt Details Provider Name:Asim amezcua, 05/28/2026 07:15:00 AM, [address], [address], [place], [place], [phone], Provider Name:Asim Lemus ier, 06/04/2026 08:30:00 AM, [address], [address], [place], [place], [phone], Progress Notes * Leatha MOHR SDOB: [birth year] (43 yo F)Acc No.[id number]:05/22/2024 Progress Note Patient: Leatha Ramirez Provider: Evelyn Shirley MD :1980 A ge:43 Y S ex:Female Date:05/22/2024 Address:[address] [place], [place] [phone] Subjective: * Chief Complaints: * F asting labs * Medical History: * Surgical History: * Hospitalization/Major Diagno stic Procedure: * Medications: Objective: Assessment: * Assessment: 1. B lood tests for routine general physical examination - Z00.00 (Primary) Plan: * Treatment: * Procedure Codes: 3 6415 VENIPUNCT, ROUTINE* * * Sign off status: Completed true * Provider: Evelyn Shirley MD Date: Generated for Jackeline gomez/Shaneka/eTransmitting on: 09/21/2024 08:14 AM EST
--- OUTSIDE RECORDS SUMMARY | 2024-05-29 03:30 | XMS_ITS ---
Author Organization Asim Shirley MD Address [address] [place], [place] [phone] Care Team Providers Care Life Skills Worker Name Role Phone Asim Shirley Primary Care Provider Allergies No Known Allergies Results Component Value Reference Range Notes TSH reflex Free T4 Reviewed date:05/29/2024 12:38:02 PM Interpretation: Performing Lab:[facility], [address] [place] [phone] Notes/Report: TSH reflex Free T4 1.36 0.32-4.0 uIU/mL REASON FOR VISIT Annual Medications Medication SIG (Take, Route, Frequency, Duration) [...] 4 hrs for 30 days 05/01/2022 Active Social History Tobacco Use: Social History Observation Description Date Details (start date - stop date) Never Smoker NA - NA Tobacco Use/Smoking Question Answer Notes Patient is a nonsmoker Additional Findings: Tobacco Non-User Cu rrent non-smoker, currently using no form of tobacco Alcohol Screen Question Answer Notes Did you have a drink contain ing alcohol in the past year? Yes How often did you have a dri nk containing alcohol in the past year? Monthly or less (1 point) How many drinks did you have on a typical day when you were drinking in the past year? 1 or 2 drinks (0 point) How often did you have 6 or more drinks on one occasion in the past year? Never (0 point) Points 1 Interpretation Negative Vital Signs Blood pressure systolic 108 mm Hg 05/29/20 24 Blood pressure diastolic 60 mm Hg 024 Height 63 in 05/29/2024 Weight 109 lbs 05/29/2024 BMI 19.31 kg/m2 05/29/2024 weight is down 6 pounds mary ajit 02-19-24 Encounters Encounter Location Date Provider Diagnosis Asim Shirley MD [address] [facility] [address] [place] [phone] 05/29/2024 Asim Shirley Chest pressure R07.8 9 ; Annual physical exam Z00.00 ; Weight loss R63.4 ; Encounter for immunization Z23 and Depression screening Z13.31 Assessments Encounter Date Diagnosis (ICD Code) Assessment Notes Treatment Notes Treatment Clinical Notes Section Notes 05/29/2024 Chest pressure (ICD-10 - R07.89) never with exertion and only for less than a minute and does hard workout with no difficulty 05/29/2024 Annual physical exam (ICD-10 - Z00.00) labs reviewed and discussed with patient 05/29/2024 Weight loss (ICD-10 - R63.4) appetite is same but is busy with work 05/29/2024 Encounter for immunization (ICD-10 - Z23) flu vaccine admnistered 05/29/2024 Depression screening (ICD-10 - Z13.31) negative screen Plan Of Treatment Treatment Notes Assessment Notes Chest pressure never with exertion and only for less than a minute and does hard workout with no difficulty Annual physical exam labs reviewed and d iscussed with patient Weight loss appetite is same but is busy with work Encounter for immunization flu vaccine a dmnistered Depression screening negative screen Next Appt Details Follow Up: 1 Year, Reason: Provider Name:Asim amezcua, 05/28/2026 07:15:00 AM, [address], [address], [place], [place], [phone], Provider Name:Asim Lemus ier, 06/04/2026 08:30:00 AM, [address], [address], [place], [place], [phone], Progress Notes * Leatha MOHR SDOB: [birth year] (43 yo F)Acc No.[id number]:05/29/2024 Progress Notes Patient: Leatha Ramirez Provider: Evelyn Shirley MD :1980 A ge:43 Y S ex:Female Date:05/29/2024 Address:[address] [place] [address] , [address] [facility] [place], [phone] Subjective: * Chief Complaints: * A nnual * HPI: D epression Screening: PHQ-9 L ittle interest or pleasure in doing things N ot at all, F eeling down, depressed, or hopeless N ot at all, T rouble falling or staying asleep, or sleeping too much N ot at all, F eeling tired or having little energy N ot at all, P oor appetite or overeating N ot at all, F eeling bad about yourself or that you are a failure, or have let yourself or your family down N ot at all, T rouble concentrating on things, such as reading the newspaper or watching television N ot at all, M oving or speaking so slowly that other people could have noticed; or the opposite, being so fidgety or restless that you have been moving around a lot more than usual N ot at all, T houghts that you would be better off or of hurting yourself in some way N ot at all, T otal Score 0 . I nterpretation and Intervention D epression Screening Findings N egative, F ollow-Up for Depression : review of PHQ-9 found negative result, no follow-up needed. C ommunication Needs: Communication Needs D oes the patient have a hearing impairment N o, D oes the patient have a vision impairment? N o, D oes the patient have a cognition impairment? N o. S KETURAH Questions: SDOH Questions I n the past year have you been worried about losing housing? N o, I n the past year have you or any family members you live with been unable to get any of the following when it was really needed? Check all that apply: N one. S ymptom(s): maribel is a 43 yo female here for annual visit with review of recent labs and follow up of chronic issues. sometimes feels tightness in chest randomly. sometimes when going to bed. does 3 miles running and HIT workout and nothing happens during that work out. lasts not more than one minute. never gets short of breath or sweating/ in last year has lost 11 pounds. eating habits have not changed. * ROS: G eneral/Constitutional: Patient denies f atigue , headache. C hange in appetite?denies. C hills d enies. F ever d enies. O phthalmologic: Blurred vision d enies. D ischarge d enies. P ain d enies. E NT: Patient denies d ecreased sense of smell , any loss of taste , sore throat. D ecreased hearing d enies. S ore throat d enies. S wollen glands d enies. E ndocrine: Cold intolerance d enies. E xcessive thirst d enies. H eat intolerance d enies. W eight loss d enies. R espiratory: Cough d enies. S hortness of breath at rest d enies. S hortness of breath with exertion d enies. W heezing d enies. C ardiovascular: Chest pain at rest d enies. C hest pain with exertion?denies. I rregular heartbeat d enies. S hortness of breath d enies. ? G astrointestinal: Abdominal pain d enies. C hange in bowel habits d enies. D iarrhea d enies. N ausea d enies. R ectal bleeding d enies. V omiting d enies . G enitourinary: Blood in urine d enies. D ifficulty urinating d enies. F requent urination d enies. U rinary incontinence D enies. M usculoskeletal: Patient denies m uscle aches. P ainful joints d enies. W eakness d enies. P eripheral Vascular: Patient denies r ed and blue toes. S kin: Dry skin d enies. I tching d enies. D enies?Mole(s), changes in moles, new moles or any lesions of concern. D enies P hotosensitivity. R dennise d enies. N eurologic: Dizziness d enies. F ainting d enies. H eadache?denies. * Medical History: * Surgical History: * Hospitalization/Major Diagno stic Procedure: * Family History: F ather: alive 72 yrs, diagnosed with Diabetes. M other: alive 71 yrs, diagnosed with COPD. 1 brother(s) , 1 sister(s) . 1 son(s) , 1 daughter(s) . . Father Pace Maker/Defib, Denies mental health/substance abuse family history, Denies mental health/substance abuse family history, Denies mental health/substance abuse family history. * Social History: T obacco Use: T obacco Use/Smoking P atient is a n onsmoker, A dditional Findings: Tobacco Non-User C urrent non-smoker, currently using no form of tobacco. D rugs/Alcohol: A lcohol Screen D id you have a drink containing alcohol in the past year? Y es, H ow often did you have a drink containing alcohol in the past year? M onthly or less (1 point), H ow many drinks did you have on a typical day when you were drinking in the past year? 1 or 2 drinks (0 point), H ow often did you have 6 or more drinks on one occasion in the past year? N ever (0 point), P oints 1 , I nterpretation N egative. M iscellaneous: C affeine: yes, frequency:, 1-2 cups per day. Children: yes. Community involvements: yes. Exercise: yes, RUN 2.5 MILES 3 DAYS A WEEK. Home smoke detector use: yes. Housing: owning. Living with: significant other. Marital status: single. Occupation: weeks/months/years, works full-time. Pets: bunnies x2 cat x1. no Travel outside of the [place], none. * Medications: T akingNorethindrone 0.35 MG Tablet [...] Aerosol Solution 2 puff Inhalation Twice a dayDiscontinuedAdderall 5 MG Tablet 1 tablet Orally Twice a dayMedication List reviewed and reconciled with the patientDiscontinued Adderall 5 MG Tablet 1 tablet Orally Twice a dayMedication List reviewed and reconciled with the patient * Allergies: N .K.D.A.yes[Allergies Verified] Objective: * Vitals: H t: 63, Wt:109, BMI:19.31, BP:108/60 weight is down 6 pounds since 02-19-24. * P ast Orders: L ab:Lipid Panel (Order Date - 05/22/2024) (Collection Date - 05/22/2024) Value Reference Range Triglycerides 59 <150 - mg/dL Cholesterol 199 <200 - mg/dL LDL Cholesterol Calculated 112 H <100 - mg/dL HDL Cholesterol 76 >40 - mg/dL L ab:UA ClnCatch+Micro w/rflx Cult (Order Date - 05/22/2024) (Collection Date - 05/22/2024) Value Reference Range Color Urine Dark Yellow - Appearance Urine Clear - PH 5.5 5.0-9.0 - Glucose Urine UA Negative Negative - mg/dL Urine Blood Negative Negative - Specific [place] - Urine >= 1.030 H 1.005-1.025 - Urine Protein Trace Neg-Trace - mg/dL Urine Ketones 15 Negative - mg/dL Nitrite Urine Negative Negative - Leukocyte Esterase Urine Negative Negative - RBC Urine 0-2 0-2 - /HPF WBC Urine 0-5 0-5 - /HPF Squamous Epithelial Cell Urine 0-2 0-2 - /HP F Bacteria Urine None Seen None Seen - Hyaline Casts Urine 3-5 0-2 - /LPF L ab:Complete Blood Count Auto Diff (Order Date - 05/22/2024) (Collection Date - 05/22/2024) Value Reference Range White Blood Count 7.0 4.8-10.8 - X10*3/uL Red Blood Count 4.29 4.20-5.50 - X10*6/uL Hemoglobin 13.6 12.0-16.0 - g/dl Hematocrit 39.3 37.0-47.0 - % Mean Corpuscular Volume 91.6 80.0-98.0 - fL Mean Corpuscular Hemoglobin 31.7 27.0-33.0 - pg Mean Corpuscular HGB Conc 34.6 31.0-35.0 - g/ dl Red Cell Distribution Width 12.0 11.0-16.0 - % Platelet Count 205 160-400 - X10*3/uL Mean Platelet Volume 10.6 9.4-12.3 - fL Neutrophils Percent Auto 52.0 45-73 - % Imm Gran Pct Auto 0.3 0.0-0.4 - % Lymphocytes Percent Auto 35.0 20-40 - % Monocytes Percent Auto 8.3 2-11 - % Eosinophils Percent Auto 3.7 0-4 - % Basophils Percent Auto 0.7 0-2 - % NRBC Pct Auto 0.0 0.0-0.2 - /100WBC Neutrophils Absolute Auto 3.6 2.0-8.3 - x10* 3/uL Imm Gran Abs Auto 0.02 0.00-0.03 - X10*3/uL Lymphocytes Absolute Auto 2.4 1.2-4.9 - X10* 3/uL Monocytes Absolute Auto 0.6 0.1-1.2 - X10*3/ uL Eosinophils Absolute Auto 0.3 0.0-0.4 - X10* 3/uL Basophils Absolute Auto 0.1 0.0-0.2 - X10*3/ uL NRBC Abs Auto 0.000 0.0-0.012 - X10*3/uL L ab:Comprehensive [place]. Panel Fast (Order Date - 05/22/2024) (Collection Date - 05/22/2024) Value Reference Range Sodium 140 135-145 - mmol/L Bilirubin Total 1.4 H 0.0-1.0 - mg/dL Aspartate Amino Transferase 27 5-31 - U/L Alanine Aminotransferase 13 0-31 - U/L Total Protein 7.5 6.5-8.0 - g/dL Albumin Level 4.8 3.5-5.0 - g/dL Alkaline Phosphatase 45 39-117 - U/L Potassium 3.7 3.3-5.1 - mmol/L Chloride 106 96-108 - mmol/L Carbon Dioxide 25 22-29 - mmol/L Anion Gap 13 12-20 - Blood Urea Nitrogen 16 9-16 - mg/dL Creatinine 0.84 0.5-1.4 - mg/dL Estimated Glomerular Filt Rate > 60 - Glucose Fasting 80 60-99 - mg/dL Calcium 9.8 8.4-10.2 - mg/dL * Examination: G eneral Examination: GENERAL APPEARANCE: w ell developed, well nourished, in no acute distress. HEAD: n ormocephalic, atraumatic. EYES: p upils equal, round, reactive to light and accommodation, sclera non-icteric. EARS: n ormal. ORAL CAVITY: m ucosa moist. THROAT: c lear. NECK/THYROID: n carmen supple, full range of motion, no cervical lymphadenopathy, no bruits. SKIN: w arm and dry, no suspicious lesions. HEART: r egular rate and rhythm, S1, S2 normal, no murmurs.? LUNGS: c lear to auscultation bilaterally. BREASTS: n ot examined. ABDOMEN: s oft, nontender, nondistended, bowel sounds present, normal, no organomegaly , no masses palpable. RECTAL EXAM: d one by literature teacher. FEMALE GENITOURINARY: d one by literature teacher. EXTREMITIES: n o clubbing, cyanosis, or edema. NEUROLOGIC: n onfocal, motor strength normal upper and lower extremities, sensory exam intact. Assessment: * Assessment: 1. A nnual physical exam - Z00.00 (Primary) 2 . C hest pressure - R07.89 3 . W eight loss - R63.4 4 . E ncounter for immunization - Z23 5 . D epression screening - Z13.31 Plan: * Treatment: 2. C hest pressure Notes: never with exertion and only for less than a minute and does hard workout with no difficulty? 3. W eight loss L AB: TSH reflex Free T4 Notes: appetite is same but is busy with work 4. E ncounter for immunization Notes: flu vaccine admnistered 5. D epression screening Notes: negative screen * Procedure Codes: 3 6415 VENIPUNCT, ROUTINE* * Preventive Medicine: Immunizations: I nfluenza H ave you had a flu shot since the most recent March 30? Y es. * Follow Up: 1 Year * * Sign off status: Completed true * Provider: Evelyn Shirley MD Date: Generated for Jackeline gomez/Shaneka/Charleeransmitting on: 09/21/2024 08:15 AM EST History and Physical Notes * HPI (History of Present Illness) Category Sub-Category Detail Notes Category Not es Symptom(s) maribel is a 43 yo female here for annual visit with review of recent labs and follow up of chronic issues. sometimes feels tightness in chest randomly. sometimes when going to bed. does 3 miles running and HIT workout and nothing happens during that work out. lasts not more than one minute. never gets short of breath or sweating/ in last year has lost 11 pounds. eating habits have not changed. Depression Screening PHQ-9 Little inte rest or pleasure in doing things: Not at all Feeling down, depressed, or hopeless: No t at all Trouble falling or staying asleep, or sl eeping too much: Not at all Feeling tired or having little energy: N ot at all Poor appetite or overeating: Not at all Feeling bad about yourself o r that you are a failure, or have let yourself or your family down: Not at all Trouble concentrating on thi ngs, such as reading the newspaper or watching television: Not at all Moving or speaking so slowly that other people could have noticed; or the opposite, being so fidgety or restless that you have been moving around a lot more than usual: Not at all Thoughts that you would be b sharri off or of hurting yourself in some way: Not at all Total Score: 0 Interpretation and Intervention Depression Scree susana Findings: Negative Follow-Up for Depression: : review of PH Q-9 found negative result, no follow-up needed SDOH Questions SDOH Questions In the past year have you been worried about losing housing?: No In the past year have you or any family members you live with been unable to get any of the following when it was really needed? Check all that apply:: None Communication Needs Communication Needs Does the patient have a hearing impairment: No Does the patient have a vision impairmen t?: No Does the patient have a cognition impair ment?: No Examination Category Sub-Category Detail Notes Category Not es General Examination GENERAL APPEARANCE: well dev eloped, well nourished, in no acute distress HEAD: normocephalic, atrau matic EYES: pupils equal, round, reactive to light and accommodation, sclera non-icteric EARS: normal THROAT: clear NECK/THYROID: neck supple, full ra nge of motion, no cervical lymphadenopathy, no bruits HEART: regular rate and rhy thm, S1, S2 normal, no murmurs LUNGS: clear to auscultatio n bilaterally ABDOMEN: soft, nontender, non distended, bowel sounds present, normal, no organomegaly , no masses palpable NEUROLOGIC: nonfocal, motor stre ngth normal upper and lower extremities, sensory exam intact SKIN: warm and dry, no nasreen picious lesions EXTREMITIES: no clubbing, cyanosi s, or edema BREASTS: not examined RECTAL EXAM: done by literature teacher FEMALE GENITOURINARY: done by literature teacher ORAL CAVITY: mucosa moist
--- OUTSIDE RECORDS SUMMARY | 2024-07-15 04:56 | XMS_ITS ---
Author Organization Asim Shirley MD Address [address] [place] [phone] Care Team Providers Care Ingredient Mixer Name Role Phone Asim Shirley Primary Care Provider REASON FOR VISIT refill Medications Medication SIG (Take, Route, Frequency, Duration) Notes Start Date End Date Status Adderall 5 MG 1 tablet Orally Twic e a day for 30 days 07/15/2024 Active Encounters Encounter Location Date Provider Diagnosis Asim Shirley MD [address] [facility] [address] [place] [phone] 07/15/2024 Asim Shirley Adult ADHD F90.9 Assessments Encounter Date Diagnosis (ICD Code) Assessment Notes Treatment Notes Treatment Clinical Notes Section Notes 07/15/2024 Adult ADHD (ICD-10 - F90.9) Plan Of Treatment Medication Medication Name Sig Start Date Stop Date Notes Adderall 5 MG 1 tablet Orally Twice a day for 30 days 06/29 Next Appt Details Provider Name:Asim amezcua, 05/28/2026 07:15:00 AM, [address] [place] [address], [address], [phone], Provider Name:Asim amezcua, 06/04/2026 08:30:00 AM, [address] [place] [address], [address], [phone], Progress Notes * Leatha MOHR SDOB: [birth year] (43 yo F)Acc No.[id number]:07/15/2024 Patient: Leatha Ramirez :1980 A ge:43 Y S ex:Female Address:[address] [place] [address] , [place] [address] * Refills Refill Adderall Tablet, 5 MG, Orally, 60, 1 tablet, Twice a day, 30 days, Refills=0 * true * Date: Generated for Jackeline gomez/Shaneka/Rafyitting on: 09/21/2024 08:14 AM EST
--- OUTSIDE RECORDS SUMMARY | 2024-12-12 04:53 | XMS_ITS ---
Author Organization Asim Shirley MD Address [address] [place] [phone] Care Team Providers Care Associate Professor Physician Name Role Phone Asim Shirley Primary Care Provider [phone] REASON FOR VISIT REFILL ADDERALL (GENERIC) Medications Medication SIG (Take, Route, Frequency, Duration) Notes Start Date End Date Status Adderall 5 MG 1 tablet Orally Twic e a day for 30 days 12/12/2024 Active Encounters Encounter Location Date Provider Diagnosis Asim Shirley MD 10 [facility] [address] [place] [phone] 12/12/2024 Asim Shirley Adult ADHD F90.9 Assessments Encounter Date Diagnosis (ICD Code) Assessment Notes Treatment Notes Treatment Clinical Notes Section Notes 12/12/2024 Adult ADHD (ICD-10 - F90.9) Plan Of Treatment Medication Medication Name Sig Start Date Stop Date Notes Adderall 5 MG 1 tablet Orally Twice a day for 30 days 11/27 Next Appt Details Provider Name:Asim amezcua, 05/28/2026 07:15:00 AM, [address] [place] [address], [phone], Provider Name:Asim amezcua, 06/04/2026 08:30:00 AM, [address], [address], [place], [place], [phone], Progress Notes * Leatha MOHR SDOB: [birth year] (43 yo F)Acc No.[id number]:12/12/2024 Patient: Leatha EASLEY :1980 A ge:43 Y S ex:Female Address:[address] [place] [address] , [place] [address] * Refills Refill Adderall Tablet, 5 MG, Orally, 60, 1 tablet, Twice a day, 30 days, Refills=0 * true * Date: Generated for Jackeline gomez/Shaneka/Rafyitting on: 09/21/2024 08:14 AM EST
--- OUTSIDE RECORDS SUMMARY | 2024-12-15 06:16 | XMS_ITS ---
Author Organization Asim Shirley MD Address 10 [facility] [address] [place] [phone] Care Team Providers Care Gold Prospector Name Role Phone Asim Shirley Primary Care Provider REASON FOR VISIT P-A Adderall Encounters Encounter Location Date Provider Diagnosis Asim Shirley MD [address] [place] [address] [place] [phone] 12/15/2024 Asim Shirley Plan Of Treatment Next Appt Details Provider Name:Asim Lemus iexiomara, 05/28/2026 07:15:00 AM, [address] [place] [address], [address], [phone], Provider Name:Asim Lemus ier, 06/04/2026 08:30:00 AM, [address] [place] [address], [address], [phone], Progress Notes * Leatha MOHR SDOB: [birth year] (44 yo F)Acc No.[id number]:12/15/2024 Patient: Leatha EASLEY :1980 A ge:43 Y S ex:Female Address:[address] [place] [address] * true * Date: Generated for Jackeline gomez/Shaneka/Xochitl on: 09/21/2024 08:15 AM EST
--- OUTSIDE RECORDS SUMMARY | 2025-05-25 02:30 | XMS_ITS ---
Author Organization Asim Shirley MD Address [address] [place], [place] [phone] Care Team Providers Care Fire Protection Designer Name Role Phone Asim Shirley Primary Care Provider [phone] Results Component Value Reference Range Notes Complete Blood Count Auto Di ff Reviewed date:05/26/2025 12:49:42 PM Interpretation: Performing Lab:[facility], [address] [place] [phone] Notes/Report: White Blood Count 7.0 4.8-10.8 X10*3/uL Red Blood Count 3.94 4.20-5.50 X10*6/uL Hemoglobin 12.2 12.0-16.0 g/dl Hematocrit 36.8 37.0-47.0 % Mean Corpuscular Volume 93.4 80.0-98.0 fL Mean Corpuscular Hemoglobin 31.0 27.0-33.0 pg Mean Corpuscular HGB Conc 33.2 31.0-35.0 g/dl Red Cell Distribution Width 12.5 11.0-16.0 % Platelet Count 227 160-400 X10*3/uL Mean Platelet Volume 10.6 9.4-12.3 fL Neutrophils Percent Auto 49.6 45-73 % Imm Gran Pct Auto 0.1 0.0-0.4 % Lymphocytes Percent Auto 37.5 20-40 % Monocytes Percent Auto 8.5 2-11 % Eosinophils Percent Auto 3.3 0-4 % Basophils Percent Auto 1.0 0-2 % NRBC Pct Auto 0.0 0.0-0.2 /100WBC Neutrophils Absolute Auto 3.5 2.0-8.3 x10*3/u L Imm Gran Abs Auto 0.01 0.00-0.03 X10*3/uL Lymphocytes Absolute Auto 2.6 1.2-4.9 X10*3/u L Monocytes Absolute Auto 0.6 0.1-1.2 X10*3/uL Eosinophils Absolute Auto 0.2 0.0-0.4 X10*3/u L Basophils Absolute Auto 0.1 0.0-0.2 X10*3/uL NRBC Abs Auto 0.000 0.0-0.012 X10*3/uL Lipid Panel Reviewed date:05/25/2025 12:33:06 PM Interpretation: Performing Lab:[address] [phone] Notes/Report: Triglycerides 71 <150 mg/dL Desirable Triglyceride: less than 150 mg/dL Borderline High Triglyceride 150-199 mg/dL High Triglyceride: 200-499 mg/dL Very High Triglyceride: greater than or equal to 5OO mg/dL Cholesterol 196 <200 mg/dL Desirable Cholesterol: less than 200 mg/dL Borderline High Cholesterol: 200-239 mg/dL High Cholesterol: greater than 239 mg/dL LDL Cholesterol Calculated 110 <100 mg/dL Desirable LDL: less than 100 mg/dL Near Optimal/Above Optimal LDL: 110-129 mg/dL Borderline High LDL: 130-159 mg/dL High LDL: 160-189 mg/dL Very High LDL: greater than or equal to 190 mg/dL HDL Cholesterol 72 >40 mg/dL Desirable HDL: greater than 40 mg/dL Note: This HDL assay may give artificially low results in patients with liver disease. UA ClnCatch+Micro w/rflx Cul t Reviewed date:05/27/2025 01:02:55 PM Interpretation: Performing Lab:[facility], [address] [place] [phone] Notes/Report: Urine, Clean Catch Color Urine Yellow Appearance Urine Clear PH 6.0 5.0-9.0 Glucose Urine UA Negative Negative mg/dL Urine Blood Negative Negative Specific [place] - Urine >= 1.030 1.005-1.025 Urine Protein Negative Neg-Trace mg/dL Urine Ketones Negative Negative mg/dL Nitrite Urine Negative Negative Leukocyte Esterase Urine Negative Negative RBC Urine 0-2 0-2 /HPF WBC Urine 0-5 0-5 /HPF Squamous Epithelial Cell Urine 3-5 0-2 /HPF Bacteria Urine None Seen None Seen Hyaline Casts Urine 0-2 0-2 /LPF REASON FOR VISIT FASTING LABS Immunizations Vaccine Route Administration Date Status Comme nts Fluarix Quadrivalent - 150 IM Intramuscular 05/25/2025 Adm inistered Encounters Encounter Location Date Provider Diagnosis Asim Shirley MD [address] [place] [phone] 05/25/2025 Asim Shirley Blood tests for routine general physical examination Z00.00 and Encounter for administration of vaccine Z23 Assessments Encounter Date Diagnosis (ICD Code) Assessment Notes Treatment Notes Treatment Clinical Notes Section Notes 05/25/2025 Blood tests for routine general physical examination (ICD-10 - Z00.00) 05/25/2025 Encounter for administration of vaccine (ICD-10 - Z23) Plan Of Treatment Pending Test Test Name Order Date Comprehensive [place]. Panel Fast Next Appt Details Provider Name:Asim amezcua, 05/28/2026 07:15:00 AM, [address] [place] [address], [address], [phone], Provider Name:Asim amezcua, 06/04/2026 08:30:00 AM, [address] [place] [address], [place] [address], [place], [place], [phone], Progress Notes * Leatha MOHR SDOB: [birth year] (44 yo F)Acc No.[id number]:05/25/2025 Progress Note Patient: Leatha EASLEY Provider: Evelyn Shirley MD :1980 A ge:44 Y S ex:Female Date:05/25/2025 Address:[address] [place] [address] , S [facility] [id number] Subjective: * Chief Complaints: * 1 . FASTING LABS. * Medical History: Objective: * Vitals: Assessment: * Assessment: 1. E ncounter for administration of vaccine - Z23 (Primary) 2 . B lood tests for routine general physical examination - Z00.00 Plan: * Treatment: * Immunizations: Fluarix Quadrivalent - 150 : 0.5 mL (Dose No:1) (Route: Intramuscular) given by Mignon Quispe , Office Staff on Left Deltoid * Procedure Codes: 3 6415 VENIPUNCT, ROUTINE*, 37674 FLU VACCINE NO PRESERV 3 & >, 51863 IMMUNIZATION ADMIN * * The named appointment provid er may or may not be the originator of this progress note, and it is not deemed complete until electronically signed by the appointment provider. Sign off status: Pending * Provider: Evelyn Shirley MD Date: 1 Generated for Jackeline gomez/Shaneka/Xochitl on: 09/21/2024 08:14 AM EST
--- OUTSIDE RECORDS SUMMARY | 2025-06-01 03:30 | XMS_ITS ---
Author Organization Asim Shirley MD Address [address] [place], [place] [id number] Care Team Providers Care Operating Room Technologist Name Role Phone Fern Asim Primary Care Provider Allergies No Known Allergies Reason For Referral Reason Chest discomfort Diagnosis 1 Chest discomfort (R0 7.89) Referral Organization Asim Shirley MD Referring Provider First Name Asim Referring Provider Last Name Fern Referring Provider Speciality Internal M edicine Referred Provider Damien Angel Referred Provider Specialty Cardiovascul ar Disease General Notes Ana Munguia 1 08/01/2024 08:59:29 AM >referral info faxed, Ana Munguia 07/13/2025 10:59:14 AM >patient is aware of appt Referral Priority Routine Referral Appointment Date 07/21/2025 REASON FOR VISIT ANNUAL EXAM Medications Medication SIG (Take, Route, Frequency, Duration) Notes Start Date End Date Status Norethindrone 0.35 MG 1 tablet Orally On ce a day for 28 day(s) Active Albuterol Sulfate HFA 108 (90 Base) MCG/ACT 1 puff as needed Inhalation every 4 hrs for 30 days 05/01/2022 Active Adderall 5 MG 1 tablet Orally Twic e a day for 30 days 12/12/2024 Not-Taking ProAir HFA 108 (90 Base) MCG/ACT 2 puffs as needed Inhalation every 6 hrs for 30 days Not-Taking Qvar 80 MCG/ACT 2 puff Inhalation Twice a day 10/12/2017 Not-Taking Social History Tobacco Use: Social History Observation [...] Interpretation Negative Vital Signs Blood pressure systolic 102 mm Hg 06/01/20 25 Blood pressure diastolic 58 mm Hg 025 Height 63 in 06/01/2025 Weight 114 lbs 06/01/2025 BMI 20.19 kg/m2 06/01/2025 weight is up 5 pounds since 05-29-24 Encounters Encounter Location Date Provider Diagnosis Asim Shirley MD [address] [place] [address] [place] [phone] 06/01/2025 Asim Shirley Adult general medical exam Z00.00 ; Chest discomfort R07.89 and Depression screening Z13.31 Assessments Encounter Date Diagnosis (ICD Code) Assessment Notes Treatment Notes Treatment Clinical Notes Section Notes 06/01/2025 Adult general medical exam (ICD-10 - Z00.00) labs reviewed and discussed with patient 06/01/2025 Chest discomfort (ICD-10 - R07.89) referral to cardiology 06/01/2025 Depression screening (ICD-10 - Z13.31) negative screen Plan Of Treatment Treatment Notes Assessment Notes Adult general medical exam labs reviewed and discussed with patient Chest discomfort referral to cardiolo gy Depression screening negative screen Referrals Referral Date Details 06/01/2025 06/01/2025, Chest di Damien cruz Next Appt Details Follow Up: 1 Year, Reason: Provider Name:Asim amezcua, 05/28/2026 07:15:00 AM, [address] [place] [address], [address], [place], [place], [phone], Provider Name:Asim Lemus ier, 06/04/2026 08:30:00 AM, [address] [facility], [address], [place], [phone], Progress Notes * Leatha MOHR SDOB: [birth year] (44 yo F)Acc No.[id number]:06/01/2025 Progress Notes Patient: Leatha EASLEY Provider: Evelyn Shirley MD :1980 A ge:44 Y S ex:Female Date:06/01/2025 Address:[address] [place] [address] [address] [facility] [place], [place] Subjective: * Chief Complaints: * A NNUAL EXAM * HPI: D epression Screening: PHQ-9 L [...] oes the patient have a vision impairment? Y es, I f yes, what is the vision impairment? G lasses, D oes the patient have a cognition [...] all that apply: N one. S ymptom(s): patient is a 44 yo femle here fro annual visit with review of recent labs and follow up of chronici issues h aving occasional palpitations and some chest tightness related to anxiety . also some clicking inshoulder and little clicking. runs 3 miles and does hiit workout 2 day. * ROS: G eneral/Constitutional: Change in appetite d enies. C hills d enies. F ever d enies. O phthalmologic: Blurred vision d enies. D ischarge d enies. P ain d enies. E NT: Decreased hearing d enies. S ore throat d enies.?Swollen glands d enies. E ndocrine: Cold intolerance [...] U rinary incontinence D enies. M usculoskeletal: Painful joints d enies. W eakness d enies. ? S kin: Dry skin d enies. I [...] works full-time. Pets: bunnies x2 cat x1. * Medications: T akingNorethindrone 0.35 MG Tablet 1 tablet Orally Once a day Albuterol Sulfate HFA 108 (90 Base) MCG/ACT Aerosol Solution 1 puff as needed Inhalation every 4 hrs Taking Norethindrone 0.35 MG Tablet 1 tablet Orally Once a day Taking Albuterol Sulfate HFA 108 (90 Base) MCG/ACT Aerosol Solution 1 puff as needed Inhalation every 4 hrs Not-Taking/PRNAdderall 5 MG Tablet 1 tablet Orally Twice a day ProAir HFA 108 (90 Base) MCG/ACT Aerosol Solution 2 puffs as needed Inhalation every 6 hrs Qvar 80 MCG/ACT Aerosol Solution 2 puff Inhalation Twice a day Medication List reviewed and reconciled with the patientNot-Taking/PRN Adderall 5 MG Tablet 1 tablet Orally Twice a day Not-Taking/PRN ProAir HFA 108 (90 Base) MCG/ACT Aerosol Solution 2 puffs as needed Inhalation every 6 hrs Not-Taking/PRN Qvar 80 MCG/ACT Aerosol Solution 2 puff Inhalation Twice a day Medication List reviewed and reconciled with the patient * Allergies: N .K.D.A.yes[Allergies Verified] Objective: * Vitals: H t: 63, Wt: 114, BMI:20.19, BP:102/58, Wt-k.71. weight is up 5 pounds since 05-29-24. * P ast Orders: L ab:Lipid Panel (Order Date - 05/25/2025) (Collection Date & Time - 05/25/2025 07:30 AM) Value Reference Range Triglycerides 71 <150 - mg/dL Cholesterol 196 <200 - mg/dL LDL Cholesterol Calculated 110 H <100 - mg/dL HDL Cholesterol 72 >40 - mg/dL L ab:Comprehensive Met. Panel (Order Date - 05/25/2025) (Collection Date & Time - 05/25/2025 07:30 AM) Value Reference Range Sodium 140 135-145 - mmol/L Bilirubin Total 0.9 0.0-1.0 - mg/dL Aspartate Amino Transferase 26 5-31 - U/L Alanine Aminotransferase 14 0-31 - U/L Total Protein 6.9 6.5-8.0 - g/dL Albumin Level 4.7 3.5-5.0 - g/dL Alkaline Phosphatase 36 L 39-117 - U/L Potassium 3.7 3.3-5.1 - mmol/L Chloride 109 H 96-108 - mmol/L Carbon Dioxide 24 22-29 - mmol/L Anion Gap 11 L 12-20 - Blood Urea Nitrogen 16 9-16 - mg/dL Creatinine 0.76 0.5-1.4 - mg/dL Estimated Glomerular Filt Rate > 60 - Glucose Random 91 60-115 - mg/dL Calcium 9.2 8.4-10.2 - mg/dL L ab:Complete Blood Count Auto Diff (Order Date - 05/25/2025) (Collection Date & Time - 05/25/2025 07:30 AM) Value Reference Range White Blood Count 7.0 4.8-10.8 - X10*3/uL Red Blood Count 3.94 L 4.20-5.50 - X10*6/uL Hemoglobin 12.2 12.0-16.0 - g/dl Hematocrit 36.8 L 37.0-47.0 - % Mean Corpuscular Volume 93.4 80.0-98.0 - fL Mean Corpuscular Hemoglobin 31.0 27.0-33.0 - pg Mean Corpuscular HGB Conc 33.2 31.0-35.0 - g/ dl Red Cell Distribution Width 12.5 11.0-16.0 - % Platelet Count 227 160-400 - X10*3/uL Mean Platelet Volume 10.6 9.4-12.3 - fL Neutrophils Percent Auto 49.6 45-73 - % Imm Gran Pct Auto 0.1 0.0-0.4 - % Lymphocytes Percent Auto 37.5 20-40 - % Monocytes Percent Auto 8.5 2-11 - % Eosinophils Percent Auto 3.3 0-4 - % Basophils Percent Auto 1.0 0-2 - % NRBC Pct Auto 0.0 0.0-0.2 - /100WBC Neutrophils Absolute Auto 3.5 2.0-8.3 - x10* 3/uL Imm Gran Abs Auto 0.01 0.00-0.03 - X10*3/uL Lymphocytes Absolute Auto 2.6 1.2-4.9 - X10* 3/uL Monocytes Absolute Auto 0.6 0.1-1.2 - X10*3/ uL Eosinophils Absolute Auto 0.2 0.0-0.4 - X10* 3/uL Basophils Absolute Auto 0.1 0.0-0.2 - X10*3/ uL NRBC Abs Auto 0.000 0.0-0.012 - X10*3/uL * Examination: G eneral Examination: GENERAL APPEARANCE: [...] LUNGS: c lear to auscultation bilaterally. BREASTS: d one by concrete pavement installer. ABDOMEN: s oft, nontender, nondistended, bowel sounds present, normal, no organomegaly , no masses palpable. RECTAL EXAM: d one by concrete pavement installer. FEMALE GENITOURINARY: d one by concrete pavement installer. EXTREMITIES: n o clubbing, cyanosis, or edema. NEUROLOGIC: n onfocal, motor strength normal upper and lower extremities, sensory exam intact. Assessment: * Assessment: 1. A dult general medical exam - Z00.00 (Primary) 2 . C hest discomfort - R07.89 3 . D epression screening - Z13.31 Plan: * Treatment: 2. C hest discomfort Notes: referral to cardiology Referral To:Damien Angel Cardiovascular Disease Reason:Chest discomfort 3. D epression screening Notes: negative screen * Procedure Codes: * Follow Up: 1 Year * * Sign off status: Completed true * Provider: Evelyn Shirley MD Date: 08/01/2024 Generated for Jackeline gomez/Shaneka/Rafyitting on: 09/21/2024 08:15 AM EST History and Physical Notes * HPI (History of Present Illness) Category Sub-Category Detail Notes Category Not es Symptom(s) patient is a 44 yo femle here fro annual visit with review of recent labs and follow up of chronici issues having occasional palpitations and some chest tightness related to anxiety . also some clicking inshoulder and little clicking. runs 3 miles and does hiit workout 2 day Depression Screening PHQ-9 Little interest or pleasure in doing things: Not at [...] the patient have a vision impairmen t?: Yes If yes, what is the vision impairment?: Glasses Does the patient have a cognition impair [...] no clubbing, cyanosi s, or edema BREASTS: done by concrete pavement installer RECTAL EXAM: done by concrete pavement installer FEMALE GENITOURINARY: done by concrete pavement installer ORAL CAVITY: mucosa moist Consultation Request Notes Referral Date Referring Provider Referred Provider Not es 06/01/2025 Asim Shirley Nirav Chest [facility]fort
--- NOTE | 2025-07-21 08:13 | A.OFFVIS_ITS ---
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 She reports intermittent, non-severe chest pains occurring every couple of weeks, which are sometimes felt after exercise but not during. The pain was initially on both sides of her chest but has more recently been localized to the right side. She also experiences heart palpitations, described as a fast heartbeat, which occur randomly at rest about once a month and last for less than a minute before resolving spontaneously. These episodes are not associated with lightheadedness, dyspnea, or chest pain and have no clear triggers. Additionally, she notes occasional lightheadedness upon standing. The patient has a significant family history of heart disease; her father had his first heart attack in his late 30s, had coronary stents and an implantable cardioverter-defibrillator (ICD), and at age 75. Her mother and siblings have no history of heart disease. Her past medical history is negative for hypertension, hyperlipidemia, or diabetes, but she does have a history of migraines with aura occurring about twice a year. She has never seen a child day care center worker before. Her medications include only oral contraceptives and vitamins. She exercises regularly for decades, including running and other cardio, and notes expected mild shortness of breath with exertion. She denies cigarette smoking but reports social alcohol use (wine) and occasional marijuana use, acknowledging that marijuana can sometimes precipitate palpitations. [facility] Family History (Updated 07/21/25 @ 12:15 by TYSHAWN Isidro) Father No problems noted. Social History (Updated 07/21/25 @ 12:15 by TYSHAWN Isidro) Comment: Occasional wine Patient Tobacco Use Status: Never used Tobacco Review of Systems Const All systems reviewed & are unremarkable except as noted in HPI and below ENT Denies dizziness Card Reports chest pain, Reports chest pain at rest, Denies chest pain with activity, Reports rapid heart rate, Denies pedal edema, Denies edema, Denies leg edema, Denies lightheadedness, Denies palpitations, Denies dyspnea, Denies dyspnea on exertion and Denies orthopnea Resp Denies cough, Denies dyspnea and Denies dyspnea on exertion GI Denies hematochezia and Denies change in stool character Musc Denies abnormal gait, Denies limited range of motion, Denies muscle cramps, Denies muscle weakness, Denies numbness, Denies radiating pain into limb, Denies stiffness and Denies tingling Neuro Denies abnormal gait, Denies dizziness, Denies numbness and Denies tingling Endo Denies palpitations Physical Exam Vital Signs: Last Vital Signs Pulse 79 07/21/25 08:14 BP 102/62 07/21/25 08:14 BMI result Body Mass Index 20.6 Const General: cooperative, healthy appearing, comfortable and no acute distress Orientation/consciousness: patient oriented x3 Neck Neck: Yes normal visual inspection and Yes no JVD Resp Effort & Inspection: normal respiratory effort Auscultation: clear to auscultation bilaterally, no rales, no rhonchi and no wheezes Cardio Rate: regular rate Rhythm: regular rhythm Heart sounds: S1 normal heart sound present, S2 normal heart sound present, no gallops, no murmurs and no rubs Neuro General: patient oriented x3 Extrem General: Yes normal to inspection and No no pedal edema Psych Appearance: grossly normal Mental Status: mental status grossly normal Speech and movement: Normal speech and movement present Office Procedures EKG Details: Today, read by me, normal sinus rhythm, rate 79, normal [place], QRS and QTC intervals 06489-Peamhcsoqqixdvalt, Complete Assessment & Plan Assessment & Plan (1) Chest discomfort: Code(s): R07.89 - Other chest pain Category: Medical Plan: Reports of atypical chest discomfort. Cardiac risk of family history with a early CAD. EKG today normal sinus rhythm with no acute ST or T-wave abnormalities. Will check an exercise stress test to evaluate for ischemia. Will check an echocardiogram to evaluate for structural heart disease. Cardiology follow-up 6 weeks, sooner if needed (2) Heart palpitations: Code(s): R00.2 - Palpitations Category: Medical Plan: Report of heart palpitations where her heart is beating fast for unknown reason. Will check a Holter monitor to assess for arrhythmia. (3) Family history of premature CAD: Code(s): Z82.49 - Family history of ischemic heart disease and other diseases of the circulatory system Category: Medical Plan: Father with 1st NH in his 30s. Plan I explained to the patient that her EKG today looks normal. I discussed that her chest discomfort symptoms are atypical for cardiac-related pain, as they tend to occur after exercise rather than during, which makes musculoskeletal causes more likely. However, given her significant family history of premature coronary artery disease, I recommended a thorough baseline evaluation. I recommended an exercise stress test to monitor her heart's response to exertion, an echocardiogram to assess the structural integrity of her heart, and a Holter monitor to capture any rhythm abnormalities that may correlate with her palpitation symptoms. I advised her that scheduling will contact her to arrange these tests, and she should try to have them performed on the same day for convenience. I also provided return precautions, instructing her to go to the emergency room for persistent chest pain or palpitations. We scheduled a follow- up visit in approximately six weeks to discuss the test results. Orders: Orders CA echo transthoracic complete Today R00.2 - Palpitations, R07.89 - Other chest pain CA stress test Today R00.2 - Palpitations, R07.89 - Other chest pain ECG 3 day holter monitor Today R00.2 - Palpitations, R07.89 - Other chest pain Patient Instructions: - We are ordering several tests to check your heart: an exercise stress test on a treadmill, an ultrasound of your heart (echocardiogram), and a heart monitor (Holter) that you will wear. - The hospital's scheduling department will call you to set up these appointments. - You can ask them to schedule all the tests for the same day. - Please wear sneakers when you come for your exercise stress test. - If you experience chest pain that does not go away or heart palpitations that continue without stopping, please go to the nearest Emergency Room. - We will schedule a follow-up appointment in about six weeks to go over your test results. Patient was informed and verbally consented to the use of an ambient scribe for clinic note documentation during this visit. Visit time spent on chart review, interview, assessment, orders, documentation. Coding Level of Care Code New Pt Level 4 (66571) Add On Problem Visit Only Diagnoses Chest discomfort R07.89 Heart palpitations R00.2 Family history of premature CAD Z82.49 CPT Codes EKG - CPT: 23477-Xqxdiycakshqxceiy, Complete ([id number]) Time Spent (min) 30
[2025-07-21 08:14] VITALS: BP 102/62; PULSE 79; BMI 20.6
--- OUTSIDE RECORDS SUMMARY | 2025-07-21 08:15 | XMS_ITS | Patient Health Record ---
Author Organization Asim Shirley MD Address [address] [place], [place] [id number] Care Team Providers Care Public Transit Trolley Driver Name Role Phone Asim Shirley Primary Care Provider Allergies No Known Allergies Results Component Value Reference Range Notes MM tomosynthesis screening B I Reviewed date:09/05/2024 04:15:38 PM Interpretation: Performing Lab: Notes/Report: [address] [place] [address] Mammography Report Signed Patient: Leatha Mohr MR#: [id number] [birth year] : 1980 Acct:[id number] Age/Sex: 43 / F ADM Date: 08/26/24 Loc: HO.MAMMO Attending Dr: Asim Shirley MD Ordering Physician: Asim Shirley MD Results: 1Ne gative Date of Service: 08/26/24 Follow Up: 1 Year From Orig inal Mammogram Procedure(s): MM tomosynthesis screening BI Accession Number(s): [id number] cc: Asim Shirley MD EXAMINATION: MM SCREENING [...] by: Peggy Simmons DO 09/05/2024 12:42 PM [facility] Dictated By: Peggy Simmons DO Signed By: <Electronically signed by Peggy Simmons DO in OV> 09/05/24 1242 DD/ 1015 TD/TT: 08/26/24 1040 Bin Filler: [facility] [address] [place] [address] Mammography Report Signed Patient: Tee Mohr MR#: [id number] [birth year] : 1980 Acct:[id number] Age/Sex: 43 / F ADM Date: 08/26/24 Loc: HO.MAMMO Attending Dr: Asim Shirley MD Ordering Physician: Asim Shirley MD Results: 1Ne gative Date of Service: 08/26/24 Follow Up: 1 Year From Orig ina Mammogram Procedure(s): MM tomosynthesis screening BI Accession Number(s): [id number] cc: Asim Shirley MD EXAMINATION: MM SCREENING [...] by: Peggy Simmons DO 09/05/2024 12:42 PM [facility] Dictated By: Peggy Simmons DO Signed By: <Electronically signed by Peggy Simmons DO in OV> 09/05/24 1242 DD/ 1015 TD/TT: 08/26/24 1040 Bin Filler: Rah More. Panel Reviewed date:05/26/2025 12:49:03 PM Interpretation: Performing Lab:[facility], [address] [place] [phone] Notes/Report: Sodium 140 135-145 mmol/L Potassium 3.7 [...] U/L Complete Blood Count Auto Di ff Reviewed date:05/26/2025 12:49:42 PM Interpretation: Performing Lab:[facility], [address] [place] [phone] Notes/Report: White Blood Count 7.0 4.8-10.8 X10*3/uL [...] Panel Reviewed date:05/25/2025 12:33:06 PM Interpretation: Performing Lab:[facility], [address] [place] [phone] Notes/Report: Triglycerides 71 <150 mg/dL Desirable Triglyceride: [...] t Reviewed date:05/27/2025 01:02:55 PM Interpretation: Performing Lab:[facility], [address] [place] [phone] Notes/Report: Urine, Clean Catch Color Urine Yellow Appearance Urine Clear PH 6.0 5.0-9.0 Glucose Urine UA Negative Negative mg/dL Urine Blood Negative Negative Specific [place] - Urine >= 1.030 1.005-1.025 Urine Protein Negative Neg-Trace mg/dL Urine Ketones Negative Negative mg/dL Nitrite Urine Negative Negative Leukocyte Esterase Urine Negative Negative RBC Urine 0-2 0-2 /HPF WBC Urine 0-5 0-5 /HPF Squamous Epithelial Cell Urine 3-5 0-2 /HPF Bacteria Urine None Seen None Seen Hyaline Casts Urine 0-2 0-2 /LPF Reason For Referral Reason Chest discomfort Diagnosis 1 Chest discomfort (R0 7.89) Referral Organization Asim Shirley MD Referring Provider First Name Asim Referring Provider Last Name Fern Referring Provider Speciality Internal M edicine Referred Provider Damien Angel Referred Provider Specialty Cardiovascul ar Disease General Notes Ana Munguia 1 08/01/2024 08:59:29 AM >referral info faxedNilda Annette 07/13/2025 10:59:14 AM >patient is aware of appt Referral Priority Routine Referral Appointment Date 07/21/2025 Medications Medication SIG (Take, Route, Frequency, Duration) [...] puff Inhalation Twice a day 10/12/2017 Not-Taking Immunizations Vaccine Route Administration Date Status Comme [...] Problem Status W/U Status Risk Notes Problem [id number] Exercise-induced bronchoconstriction (J45.990) Active confirmed Problem [id number] Adult ADHD (F90.9) Active confirmed Vital Signs Blood pressure diastolic 58 mm Hg 06/01/2025 chayo ght is up 5 pounds since 05-29-24 Height 63 in 06/01/2025 weight is up 5 pounds since 05-29-24 Blood pressure systolic 102 mm Hg 06/01/2025 weig ht is up 5 pounds since 05-29-24 Weight 114 lbs 06/01/2025 weight is up 5 pounds since 05-29-24 BMI 20.19 kg/m2 06/01/2025 weight is up 5 pounds since 05-29-24 Encounters Encounter Location Date Provider Diagnosis Asim Shirley MD [address] [place] [phone] 05/25/2025 Asim Shirley Blood tests for routine general physical examination Z00.00 and Encounter for administration of vaccine Z23 Asim Shirley MD [address] [place] [phone] 06/01/2025 Aism Shirley Adult general medica l exam Z00.00 ; Chest discomfort R07.89 and Depression screening Z13.31 Asim Shirley MD [address] [facility] [address] [place] [phone] 12/12/2024 Asim Shirley Adult ADHD F90.9 Asim Shirley MD [address] [facility] [address] [place] [phone] 12/15/2024 Asim Shirley Assessments Encounter Date Diagnosis (ICD Code) Assessment Notes Treatment Notes Treatment Clinical Notes Section Notes 05/25/2025 Blood tests for routine general physical examination (ICD-10 - Z00.00) 05/25/2025 Encounter for administration of vaccine (ICD-10 - Z23) 06/01/2025 Adult general medical exam (ICD-10 - Z00.00) labs reviewed and discussed with patient 06/01/2025 Chest discomfort (ICD-10 - R07.89) referral to cardiology 12/12/2024 Adult ADHD (ICD-10 - F90.9) 06/01/2025 Depression screening (ICD-10 - Z13.31) negative screen Plan Of Treatment Pending Test Test Name Order Date Comprehensive [place]. Panel Fast US soft tiss head and/or neck 02/14/2022 Next Appt Details Provider Name:Asim amezcua, 05/28/2026 07:15:00 AM, [address] [facility], [place] [address], [place], [place], [phone], Provider Name:Asim amezcua, 06/04/2026 08:30:00 AM, [address], [address], [place], [phone], Insurance Providers Payer Name Payer Address Payer Phone Subscriber Number Group Number Insured Name Patient Relationship to Insured Coverage Start Date Coverage End Date [facility] [address] [place] [id number] Leatha Mohr Self - patient is the insured [facility] [address] [place], [place] [id number] MohrLeatha garza Self - patient is the insured Medical (General) History Medical History History ICD Code Abnormal CBC
== END 2025-07-21 08:52 | disposition home or self-care (01) ==
LOC: HO.HCS 08:12
PROVIDERS: PCP Internal Medicine; Visit Provider Nurse Practitioner Family
DX: R07.89 Other chest pain (principal); R00.2 Palpitations; Z82.49 Family history of ischemic heart disease and other diseases of the circulatory system
CPT/HCPCS: 93010; 99204

== ENCOUNTER → 2025-07-21 08:11 | Outpatient (BNVA) | payer OTHER, SELFPAY | PROVIDERS: PCP Internal Medicine; Visit Provider Nurse Practitioner Family | DX: R07.89 Other chest pain (principal); R00.2 Palpitations; Z82.49 Family history of ischemic heart disease and other diseases of the circulatory system; Z86.79 Personal history of other diseases of the circulatory system | CPT/HCPCS: 93005 ==